=== PATIENT | male | born 1950 | race Caucasian/White ===

== ENCOUNTER 2017-08-07 20:30 | Inpatient (IN) | payer MEDICARE, OTHER ==
[~2017-08-07] VITALS: Ht 177.8 cm; Wt 155.1 kg
[2017-08-07 20:30] VITALS: BP 119/70
[2017-08-07] MEDS ORDERED: NIAC500T PO (22:51)
[2017-08-07] MEDS ORDERED: SELE325S2 TP (22:51)
[2017-08-07] MEDS ORDERED: MAGN400T3 PO (22:51)
[2017-08-07] MEDS ORDERED: TAMS0.4C2 PO (22:51)
[2017-08-07] MEDS ORDERED: ACET325T9 PO (22:51)
[2017-08-07] MEDS ORDERED: NYST1POW PO (22:51)
[2017-08-07] MEDS ORDERED: MAG355OR11 PO (22:51)
[2017-08-07] MEDS ORDERED: POTA20TA82 PO (22:51)
[2017-08-07] MEDS ORDERED: MIRT7.5T8 PO (22:51)
[2017-08-07] MEDS ORDERED: DOCU-109 PO (22:51)
[2017-08-07] MEDS ORDERED: ASCO500T3 PO (22:51)
[2017-08-07] MEDS ORDERED: BUPR100T8 PO (22:51)
[2017-08-07] MEDS ORDERED: OLAN2.5T11 PO (22:51)
[2017-08-07] MEDS ORDERED: INDA2.5T PO (22:51)
[2017-08-07] MEDS ORDERED: MAGN2400 PO (22:51)
[2017-08-07] MEDS ORDERED: FLUV50TA2 PO (22:51)
[2017-08-07] MEDS ORDERED: TRAZ100T12 PO (22:51)
[2017-08-07] MEDS ORDERED: NYST15OI TP (22:51)
[2017-08-07] MEDS ORDERED: FERR325T3 PO (22:51)
[2017-08-07] MEDS ORDERED: DIVA500T9 PO (22:51)
[2017-08-07] MEDS ORDERED: BUSP5TAB PO (22:51)
[2017-08-07] MEDS ORDERED: CYAN10005 PO (22:51)
[2017-08-07] MEDS ORDERED: BISA-42 PO (22:51)
[2017-08-07] MEDS ORDERED: RISP2TAB3 PO (22:51)
[2017-08-07 22:54] VITALS: BP 131/71
[2017-08-07] MEDS ORDERED: ACETAMINOPHEN 325 MG TABLET. PO PRN (23:00)
[2017-08-07] MEDS: DIVALPROEX DELAYED RELEASE 500 MG TABLET.DR. PO SCH ×2 (23:00→23:50)
[2017-08-07] MEDS ORDERED: MAGNESIUM HYDROXIDE 2,400 MG/30 ML ORAL.SUSP. PO PRN (23:00)
[2017-08-07] MEDS ORDERED: ALOE VERA TP SCH (23:00)
[2017-08-07] MEDS ORDERED: SELENIUM SULFIDE TP SCH (23:00)
[2017-08-07] MEDS ORDERED: MAG HYDROX/ALUMINUM HYD/SIMETH 30 ML ORAL.SUSP PO PRN (23:00)
[2017-08-07] MEDS ORDERED: traZODone 100 MG TABLET. PO PRN (23:00)
[2017-08-07] MEDS ORDERED: BISACODYL 5 MG TABLET.DR. PO PRN (23:00)
[2017-08-07] MEDS ORDERED: NYSTATIN 100,000 UNIT/GM TOPICAL CREAM 15GM TUBE. TP PRN (23:00)
[2017-08-07] MEDS ORDERED: OLANZapine 2.5 MG TABLET PO PRN (23:00)
[2017-08-07] MEDS: MAGNESIUM OXIDE 400 MG TABLET PO SCH (23:50)
[2017-08-07] MEDS: risperiDONE 1 MG TABLET. PO SCH (23:50)
[2017-08-07] MEDS: busPIRone 5 MG TABLET. PO SCH (23:50)
[2017-08-07] MEDS: POTASSIUM CL 20MEQ-0.45% NACL 1,000 ML IV SCH (23:50)
[2017-08-07] MEDS: NIACIN ER 500 MG TABLET.ER PO SCH (23:50)
[2017-08-07] MEDS: MIRTAZAPINE 7.5 MG TABLET. PO SCH (23:50)
[2017-08-08] VITALS (7 sets, daily range): BP systolic 111–157; BP diastolic 61–80
[2017-08-08] MEDS: methylPREDNISolone SOD SUCC PF 40 MG/ML VIAL. IV SCH ×4 (00:10→21:47)
--- NOTE | 2017-08-08 00:55 | HP ---
ADMIT DATE: 08/07/2017 CHIEF COMPLAINT: Shortness of breath. HISTORY OF PRESENT ILLNESS: The patient is a 66-year-old morbidly obese gentleman with multiple psychiatric issues as well as COPD and CHF who presented from his custodial to the Emergency Room at [facility] with difficulty breathing. He apparently was found to be pulse ox at 82% on room air, which improved with 5 liters by nasal cannula. In the ER, he initially appeared confused and EMS had found him in a puddle of foul-smelling urine. EMS was told by custodial staff that last time patient's oxygen saturation was checked last week when it was normal. In the Emergency Room, he was evaluated, was shown to have significant oxygen needs with elevated CO2. He was therefore transferred to [facility] for pulmonary evaluation and potential BiPAP. PAST MEDICAL HISTORY: COPD, hypertension, hyperlipidemia, dysphasia, generalized weakness, obstructive sleep apnea, chronic pain, mental retardation, schizophrenia, seizure disorder, anxiety/bipolar disorder and schizo-affective disorder. SOCIAL HISTORY: [facility]. No toxic habits. He is a nonsmoker. ALLERGIES: SULFA, DIAZEPAM AND FLUOXETINE. MEDICATIONS: MAR reconciled with home medications. REVIEW OF SYSTEMS: Positive as per HPI. Denies any fevers or chills. He feels fine, is very thirsty requesting food and drink. Denies any other symptoms in rest of organ system review. PHYSICAL EXAMINATION: VITAL SIGNS: Show a blood pressure of 131/71, heart rate of 95, respiratory rate at 22 and temperature 99.1. GENERAL: This is a massively obese 66-year-old gentleman, awake, alert, in no acute distress. HEENT: Shows no scleral icterus. Oral mucosa is moist. NECK: Short and thick. LUNGS: Fairly clear with distant breath sounds. HEART: Regular rate and rhythm. No murmur appreciated. ABDOMEN: Massively obese. Positive bowel sounds. EXTREMITIES: Show no edema. SKIN: Warm, soft and dry without any rash. LABORATORIES: CBC at [facility] with an undocumented WBC, hemoglobin 10.5 and platelets of 224. Chemistries with BUN and creatinine of 19 and 0.8. Electrolytes with potassium of 3.4, otherwise benign. LFTs normal. Albumin at 3.0. UA with 20-40 wbc's and few bacteria. ABGs with pH of 7.50, pCO2 of 56, pO2 of 54 and FiO2 of 38%. Lactic acid at 1.6. Troponin 0.196. RADIOGRAPHIC FINDINGS: A portable chest x-ray with possible cephalization, poor technique with rotation. CT of the head shows no acute intracranial CT abnormality, ventriculomegaly. ASSESSMENT AND PLAN: The patient is a 66-year-old morbidly-obese gentleman with history of chronic obstructive pulmonary disease and obstructive sleep apnea who presents with some altered mental status and possible urinary tract infection. Suspect this is chronic obstructive pulmonary disease exacerbation as he is quite hypercarbic. He has been admitted. Repeat arterial blood gases here revealed worsening pCO2. We will start BiPAP at this time for his hypercapnia and hypoxia. He is actually clinically fairly asymptomatic. Question of urinary tract infection is raised as well. I suspect that this actually may not be the case given his body habitus. Nevertheless, we will obtain urine culture. He has received ceftriaxone in the Emergency Room already. We will continue for now empirically, switch when a specific culture and sensitivity is available. For his significant psych and mental issues, we will continue all his home medications for the time being. This may be somewhat complicated given the need for BiPAP at this time. We will reevaluate his respiratory status in the morning. He does have elevated troponins, which I suspect are secondary to his respiratory distress rather than primary. We will rule out acute coronary syndrome. Obtain echo in the morning and obtain cardiac consult. NORTH GARCIA MD DR: UR/nts JOB#: [id number] / [id number] NATHAN Wills MD MTDD
[2017-08-08 04:30] LABS: BASO % 0 % (0-3); EOS % 0 % (0-3); HEMATOCRIT 31.5 % (39.0-53.0); HEMOGLOBIN 10.1 g/dL (13.0-17.5); LYMPH # 0.7 x10^3/uL (1.0-4.8); LYMPH % 9 % (24-48); MEAN CORPUSCULAR HEMOGLOBIN 27 pg (25-35); MEAN CORPUSCULAR HGB CONC 32 g/dL (31-37); MEAN CORPUSCULAR VOLUME 82 fL (79-100); MONO % 1 % (0-9); NEUT % 89 % (31-73); PLATELET COUNT 221 x10^3/uL (140-400); RED BLOOD COUNT 3.83 x10^6/uL (4.30-5.70); RED CELL DISTRIBUTION WIDTH 16.7 % (11.5-14.5); WHITE BLOOD COUNT 7.6 x10^3/uL (4.0-11.0)
[2017-08-08 04:52] LABS: ALBUMIN 2.6 g/dL (3.4-5.0); ALBUMIN/GLOBULIN RATIO 0.6 (1.0-1.7); CALCIUM 9.5 mg/dL (8.5-10.1); CREATININE 0.7 mg/dL (0.7-1.3); GFR 113.5; POTASSIUM 3.3 mmol/L (3.5-5.1); TOTAL BILIRUBIN 0.3 mg/dL (0.2-1.0); TOTAL PROTEIN 7.3 g/dL (6.4-8.2)
[2017-08-08 07:06] LABS: ANISOCYTOSIS SLIGHT; PLT ESTIMATE ADEQUATE (ADEQUATE); POLYCHROMASIA SLIGHT
[2017-08-08] MEDS: POTASSIUM CL 20MEQ-0.45% NACL 1,000 ML IV SCH ×2 (08:46→21:41)
[2017-08-08] MEDS: DIVALPROEX DELAYED RELEASE 500 MG TABLET.DR. PO SCH ×3 (09:00→21:39)
[2017-08-08] MEDS: busPIRone 5 MG TABLET. PO SCH ×4 (09:00→21:40)
[2017-08-08] MEDS: buPROPion SR 100 MG TABLET.SA. PO SCH (12:15)
[2017-08-08] MEDS: risperiDONE 1 MG TABLET. PO SCH ×2 (12:15→21:52)
[2017-08-08] MEDS: TAMSULOSIN 0.4 MG CAP.ER.24H. PO SCH (12:15)
[2017-08-08] MEDS: ASCORBIC ACID 500 MG TABLET PO SCH (12:17)
[2017-08-08] MEDS: POTASSIUM CHLORIDE 20 MEQ TABLET.ER. PO SCH (12:17)
[2017-08-08] MEDS: CYANOCOBALAMIN (VITAMIN B-12) 1,000 MCG TABLET. PO SCH (12:18)
[2017-08-08] MEDS: FERROUS SULFATE 325 MG TABLET. PO SCH (12:18)
[2017-08-08] MEDS: DOCUSATE SODIUM 100 MG CAPSULE. PO SCH ×2 (12:18→21:40)
[2017-08-08] MEDS: MAGNESIUM OXIDE 400 MG TABLET PO SCH ×3 (12:23→21:39)
[2017-08-08] MEDS: NYSTATIN TOPICAL POWDER 15GM BOTTLE. TP SCH ×2 (12:29→21:40)
--- NOTE | 2017-08-08 12:37 | PDOC2 ---
CONNOR COTTO FIREWOOD CUTTER 08/08/17 1237: CARDIAC CONSULT DATE OF CONSULT Date of Consult DATE: 08/08/17 TIME: 12:27 REASON FOR CONSULT Reason for Consult: SOB, hx of CHF REFERRING PHYSICIAN Referring Physician: Berta SOURCE Source: Chart review, Patient HISTORY OF PRESENT ILLNESS HISTORY OF PRESENT ILLNESS This is a 66 yo male admitted for complains of SOA. Initially he was at [place] and transferred here for further workup. He is a poor historian and could not tell me significant details of his medical hx and his symptoms. He told me that he is still a little SOA but able to tolerate removing his bipap and eating lunch right now and requesting diet soda. He has significant psychiatric issue and reside primarily at the [facility] home. He is notable for COPD , CHF, and was having difficulty breathing at the [facility] home and was noted at 82% RA initially at [facility]. He was noted to be confused but at this time his baseline is not determined. Denies any chest pain currently and no symptoms of palpitations. Per chart review there was no noted symptoms of palpitations. He appears to have significant limitation to his mobility possibly WC bound. Reviewing his past chart, no indications of VTE, falls, injury and no CAD as well as no ischemic workup. PAST MEDICAL HISTORY Cardiovascular: CHF, HTN, Other (chronic lymphedema) Pulmonary: Other (SARITHA with CPAP) CENTRAL NERVOUS SYSTEM: Other (intellectual disability) GI: Constipation Psych: Bipolar, Depression (major) Musculoskeletal: Osteoarthritis, Other (Vit D deficiency) Renal/: Other (hypnatremia) FAMILY HISTORY Family History noncontributory to CV SOCIAL HISTORY Smoke: No ALCOHOL: none Drugs: None Lives: [facility] CURRENT MEDICATIONS CURRENT MEDICATIONS Current Medications Medications (Trade) Dose Ordered Sig/Corrie Route PRN Reason Start Time Stop Time Status Last Admin Dose Admin Potassium Chloride/Sodium Chloride 1,000 ml @ 100 mls/hr Q10H IV 08/07/17 23:00 08/08/17 08:46 Ascorbic Acid (Vitamin C) 500 mg DAILY PO 08/08/17 09:00 08/08/17 12:17 Bupropion HCl (Wellbutrin Sr) 300 mg DAILY PO 08/08/17 09:00 08/08/17 12:15 Buspirone HCl (Buspar) 5 mg QID PO 08/07/17 23:00 08/08/17 12:15 Cyanocobalamin (Vitamin B-12) 1,000 mcg DAILY PO 08/08/17 09:00 08/08/17 12:18 Divalproex Sodium (Depakote) 500 mg BID PO 08/07/17 23:00 08/07/17 23:00 Docusate Sodium (Colace) 100 mg BID PO 08/08/17 09:00 08/08/17 12:18 Magnesium Oxide (Magnesium Oxide) 400 mg TID PO 08/07/17 23:00 08/08/17 12:23 Mirtazapine (Remeron) 7.5 mg HS PO 08/07/17 23:00 08/07/17 23:50 Niacin (Slo-Niacin) 500 mg HS PO 08/07/17 23:00 08/07/17 23:50 Tamsulosin HCl (Flomax) 0.4 mg DAILY PO 08/08/17 09:00 08/08/17 12:15 Ferrous Sulfate (Feosol) 325 mg DAILY PO 08/08/17 09:00 08/08/17 12:18 Fluvoxamine Maleate (Luvox) 75 mg QHS PO 08/07/17 23:00 08/07/17 23:49 Potassium Chloride (Klor-Con) 40 meq DAILY PO 08/08/17 09:00 08/08/17 12:17 Risperidone (RisperDAL) 2 mg BID PO 08/07/17 23:00 08/08/17 12:15 Methylprednisolone Sodium Succinate (SOLU-Medrol 40MG VIAL) 40 mg Q8HRS IV 08/08/17 00:00 08/08/17 05:19 ALLERGIES ALLERGIES: Coded Allergies: Sulfa (Sulfonamide Antibiotics) (Verified Allergy, Intermediate, 08/07/17) ROS Review of System limited. poor historian, see HPI PHYSICAL EXAM General: Alert, Cooperative, No acute distress HEENT: Atraumatic, Mucous membr. moist/pink Lungs: Other (basilar crackles) Heart: Regular rate (SR), Normal S1, Normal S2, Other (distant heart sounds) Abdomen: Soft, Other (obesity) Extremities: No cyanosis, Other (1+ bilateral LE pitting edema) Skin: No breakdown, Other (facial seborrhea) Neuro: Normal speech, Sensation intact Psych/Mental Status: Mental status NL, Mood NL MUSCULOSKELETAL: Osteoarthritic changes both hands VITALS VITALS Vital Signs Date Time Temp Pulse Resp B/P (MAP) Pulse Ox O2 Delivery O2 Flow Rate FiO2 08/08/17 10:55 98.2 75 20 124/65 (84) 93 BiPAP/CPAP 98.2 08/08/17 08:00 5.0 LABS Lab: Laboratory Tests Test 08/07/17 23:25 08/08/17 04:20 Troponin I Quantitative 0.141 ng/mL (0.000-0.055) 0.104 ng/mL (0.000-0.055) White Blood Count 7.6 x10^3/uL (4.0-11.0) Red Blood Count 3.83 x10^6/uL (4.30-5.70) Hemoglobin 10.1 g/dL (13.0-17.5) Hematocrit 31.5 % (39.0-53.0) Mean Corpuscular Volume 82 fL (79-100) Mean Corpuscular Hemoglobin 27 pg (25-35) Mean Corpuscular Hemoglobin Concent 32 g/dL (31-37) Red Cell Distribution Width 16.7 % (11.5-14.5) Platelet Count 221 x10^3/uL (140-400) Neutrophils (%) (Auto) 89 % (31-73) Lymphocytes (%) (Auto) 9 % (24-48) Monocytes (%) (Auto) 1 % (0-9) Eosinophils (%) (Auto) 0 % (0-3) Basophils (%) (Auto) 0 % (0-3) Neutrophils # (Auto) 6.8 x10^3uL (1.8-7.7) Lymphocytes # (Auto) 0.7 x10^3/uL (1.0-4.8) Monocytes # (Auto) 0.1 x10^3/uL (0.0-1.1) Eosinophils # (Auto) 0.0 x10^3/uL (0.0-0.7) Basophils # (Auto) 0.0 x10^3/uL (0.0-0.2) Segmented Neutrophils % 89 % (35-66) Band Neutrophils % 2 % (0-9) Lymphocytes % 7 % (24-48) Monocytes % 2 % (0-10) Platelet Estimate Adequate (ADEQUATE) Polychromasia Slight Anisocytosis Slight Sodium Level 134 mmol/L (136-145) Potassium Level 3.3 mmol/L (3.5-5.1) Chloride Level 92 mmol/L (98-107) Carbon Dioxide Level 41 mmol/L (21-32) Anion Gap 1 (6-14) Blood Urea Nitrogen 22 mg/dL (8-26) Creatinine 0.7 mg/dL (0.7-1.3) Estimated GFR (Cockcroft-Gault) 113.5 BUN/Creatinine Ratio 31 (6-20) Glucose Level 229 mg/dL (70-99) Hemoglobin A1c 6.1 % (4.8-5.6) Calcium Level 9.5 mg/dL (8.5-10.1) Total Bilirubin 0.3 mg/dL (0.2-1.0) Aspartate Amino Transf (AST/SGOT) 20 U/L (15-37) Alanine Aminotransferase (ALT/SGPT) 17 U/L (16-63) Alkaline Phosphatase 46 U/L (46-116) Total Protein 7.3 g/dL (6.4-8.2) Albumin 2.6 g/dL (3.4-5.0) Albumin/Globulin Ratio 0.6 (1.0-1.7) Triglycerides Level 47 mg/dL (0-150) Cholesterol Level 154 mg/dL (0-200) LDL Cholesterol, Calculated 94 mg/dL (0-100) VLDL Cholesterol, Calculated 9 mg/dL (0-40) Non-HDL Cholesterol Calculated 103 mg/dL (0-129) HDL Cholesterol 51 mg/dL (40-60) Cholesterol/HDL Ratio 3.0 Thyroid Stimulating Hormone (TSH) 0.500 uIU/mL (0.358-3.74) ASSESSMENT/PLAN ASSESSMENT/PLAN 1. Acute respiratory failure with underlying COPD/SARITHA: improved with bipap. PE could not be completely ruled out. 2. Elevated troponin: peaked at 0.196, Possibly type 2-demand mediated. EKG SR notable for RBBB/LAFB no acute changes by comparison. No CP. 3. Hyperglycemia: A1C 6.1, metabolic syndrome with antipsychotic meds. 4. Significant psych issues: bipolar/major depression 5. Morbid obesity/deconditioning: likely WC bound 6. Chronic diastolic CHF 7. HLP: controlled Recommendations 1. Will need to discussed with DPOA if there is one regarding treatments and goals of care 2. TTE today and will note any changes and will consider and type of ischemic workup pending result. 3. Mg, PCXR, EKG, DDIMER, pro NT BNP 4. ASA. Replace K 5. Consult pulmonary Problems: EVE URRUTIA MD 08/08/17 1657: CARDIAC CONSULT ALLERGIES ALLERGIES: Coded Allergies: Sulfa (Sulfonamide Antibiotics) (Verified Allergy, Intermediate, 08/07/17) ASSESSMENT/PLAN ASSESSMENT/PLAN Patient seen and examined. Agree with CHILD WELFARE MANAGER's assessment and plan. Acute respiratory failure most probably acute COPD exacerbation. Pulmonary team consultation Slight troponin elevation probably secondary to demand ischemia from hypoxia 2-D echo showed normal LV function without any regional wall motion abnormalities. Doubt ACS. Thank you for your consultation. Problems: CONNOR COTTO APRN Aug 08, 2017 12:37 EVE URRUTIA MD Aug 08, 2017 16:57
--- NOTE | 2017-08-08 13:10 | EKG ---
[facility] [address] [place] [address] Test Date: 2017-08-08 Test Time: 13:04:15 Pat Name: GURPREET BRASHER Department: Room: [facility] Gender: M Slots Manager: AT : 1950 Requested By: CONNOR COTTO Order Number: [id number] Reading MD: Clark Ruff Measurements Intervals [place] Rate: 72 P: 0 [place]: 174 QRS: -50 QRSD: 126 T: 15 QT: 456 QTc: 501 Interpretive Statements SINUS RHYTHM ABNORMAL LEFT AXIS DEVIATION LEFT ANTERIOR FASCICULAR BLOCK NON SPECIFIC INTRAVENTRICULAR BLOCK ABNORMAL ECG RI6.01 No previous ECG available for comparison Electronically Signed On 08-22-2017 13:43:43 TRACK SUBWAY REPAIR SUPERVISOR by Clark Ruff
--- NOTE | 2017-08-08 13:36 | RAD ---
Indication: No history. Time of exam 1320 hours. The heart is enlarged. Lungs are clear. No effusion or pneumothorax is seen. Impression: Cardiomegaly.
[2017-08-08] MEDS ORDERED: PERFLUTREN PROTEIN-A MICROSPHR 0.22 MG/ML 3 ML VIAL. IV ONE ×2 (14:00→14:03)
[2017-08-08] MEDS ORDERED: IOHEXOL 300 MG/ML 100ML VIAL. IV ONE (15:15)
[2017-08-08] MEDS ORDERED: CONTRAST GIVEN MC PRN (15:15)
--- NOTE | 2017-08-08 16:03 | CARD ---
APPROVED REPORT EXAM: Two-dimensional and M-mode echocardiogram with Doppler, color Doppler with contrast. Other Information Quality : Technically Limited Rhythm : NSRTechnically limited study due to body habitus and positioning. INDICATION Dyspnea Echo Enhancing Agent Indication: Endocardial border delineation Agent/Amount Used: Optison 2mL 2D DIMENSIONS IVSd1.3 (0.7-1.1cm)Aortic Root(2D)3.7 (2.0-3.7cm) LVDd4.6 (3.9-5.9cm)LVOT Diameter2.5 (1.8-2.4cm) PWd1.3 (0.7-1.1cm)LVDs3.2 (2.5-4.0cm) FS (%) 31.5 %SV58.1 ml LVEF(%)59.5 (>50%) Aortic Valve AoV Peak Chong.144.0cm/sAoV VTI28.3cm AO Peak GR.8.3mmHgLVOT VTI 23.42cm AO Mean GR.5mmHg Mitral Valve MV E Hzzkxmfu68.2cm/sMV E Peak Gr.1mmHg MV DECEL [id number] A Ijmflpyi17.3cm/s MV FBM95omB/A Ratio0.7 MV A Fnlhdtyf218gnUNA (PHT)3.67cm2 TDI Lateral E' P. V11.35cm/sMedial E' P. V6.91cm/s E/Lateral E'4.9E/Medial E'8.0 Tricuspid Valve TR P. Fdxaawuc113bx/sRAP [id number] TR Peak Gr.98bbIeFITL24msFw LEFT VENTRICLE Technically difficult study. The left ventricle is normal size. There is borderline to mild concentri c left ventricular hypertrophy. Left ventricle systolic function is normal. The Ejection Fraction is 50-55%. There is normal LV segmental wall motion. Tissue Doppler imaging reveals mild left ventricula r diastolic dysfunction. Transmitral Doppler flow pattern is Grade I-abnormal relaxation pattern. RIGHT VENTRICLE The right ventricle is mildly dilated. RV systolic function is mildly reduced. ATRIA The left atrium size is normal. The right atrium size is normal. The interatrial septum is intact wit h no evidence for an atrial septal defect or patent foramen ovale as noted on 2-D or Doppler imaging. AORTIC VALVE The aortic valve is mildly calcified. The aortic valve is trileaflet. Doppler and Color Flow revealed no significant aortic regurgitation. There is no significant aortic valvular stenosis. MITRAL VALVE The mitral valve leaflets are calcified. There is no mitral valve stenosis. Doppler and Color Flow re vealed mild to moderate mitral regurgitation. TRICUSPID VALVE The tricuspid valve is not well visualized. Doppler and Color Flow revealed mild tricuspid regurgitat ion. The PA pressure was estimated at 32 mmHg. There is no tricuspid valve stenosis. PULMONIC VALVE The pulmonic valve is not well visualized. Doppler and Color Flow revealed no pulmonic valvular regur gitation. There is no pulmonic valvular stenosis. GREAT VESSELS The aortic root is mildily enlarged. The ascending aorta is dilated measuring 4.1 cm. Pulmonary veins not recorded. Due to poor image quality, the IVC could not be assessed. PERICARDIAL EFFUSION There is no evidence of significant pericardial effusion. Critical Notification Critical Value: No <Conclusion> Technically difficult study. The left ventricle is normal size. Left ventricle systolic function is normal. The Ejection Fraction is 50-55%. There is borderline to mild concentric left ventricular hypertrophy. RV systolic function is mildly reduced. There is no significant aortic valvular stenosis. Doppler and Color Flow revealed no significant aortic regurgitation. Doppler and Color Flow revealed mild to moderate mitral regurgitation. Doppler and Color Flow revealed mild tricuspid regurgitation. The PA pressure was estimated at 32 mmHg. The aortic root is mildily enlarged. The ascending aorta is dilated measuring 4.1 cm. There is no evidence of significant pericardial effusion.
--- NOTE | 2017-08-08 16:20 | RAD ---
EXAM: CT ANGIOGRAPHY OF THE CHEST WITH AND WITHOUT INTRAVENOUS CONTRAST. HISTORY: Respiratory distress. TECHNIQUE: Computed tomographic angiography of the chest was performed before and after the intravenous administration of 75 mL Omnipaque 300. 3-D maximum intensity projections were also performed. COMPARISON: None. FINDINGS: Images of the upper abdomen reveal extensive nodularity with thin and the omentum and peritoneal fat adjacent to the stomach. A hypoattenuating lesion in the left hepatic lobe measures 15 mm and is indeterminate. A moderate hiatal hernia contains mostly fat. Bone windows reveal there is an expansile lesion within the left anterior 8th rib concerning for metastasis. Extensive respiratory motion artifact limits sensitivity for small pulmonary emboli in the lung bases. None are seen. There is no aortic dissection or aneurysm. There are no pathologically enlarged mediastinal or axillary lymph nodes. There is no pleural or pericardial effusion. The heart is not enlarged. There are atherosclerotic calcifications of the coronary arteries. There is mild dependent atelectasis. IMPRESSION: 1. Peritoneal and omental metastatic disease, partially visualized. Correlate for known diagnosis. CT of the abdomen/pelvis could further evaluate if unclear. 2. Respiratory motion artifact limits sensitivity for small pulmonary emboli. Note is seen. *One or more of the following individualized dose reduction techniques were utilized for this examination: 1. Automated exposure control. 2. Adjustment of the mA and/or kV according to patient size. 3. Use of iterative reconstruction technique.
[2017-08-08 17:00] LABS: HCO3 ABG 36 mmol/L (21-28); PCO2 ABG 50 mmHg (35-46); SAT O2 ABG 85 % (92-99)
[2017-08-08 17:02] LABS: PO2 ABG 49 mmHg (65-108)
[2017-08-08 17:05] LABS: PH ABG 7.47 (7.35-7.45)
--- NOTE | 2017-08-08 17:21 | PDOC ---
PROGRESS NOTES Chief Complaint Chief Complaint [error] Labs LABS Laboratory Tests Test 08/07/17 23:25 08/07/17 23:35 08/08/17 04:20 08/08/17 13:25 Troponin I Quantitative 0.141 ng/mL (0.000-0.055) 0.104 ng/mL (0.000-0.055) Nasal Screen MRSA (PCR) Negative (Negative) White Blood Count 7.6 x10^3/uL (4.0-11.0) Red Blood Count 3.83 x10^6/uL (4.30-5.70) Hemoglobin 10.1 g/dL (13.0-17.5) Hematocrit 31.5 % (39.0-53.0) Mean Corpuscular Volume 82 fL (79-100) Mean Corpuscular Hemoglobin 27 pg (25-35) Mean Corpuscular Hemoglobin Concent 32 g/dL (31-37) Red Cell Distribution Width 16.7 % (11.5-14.5) Platelet Count 221 x10^3/uL (140-400) Neutrophils (%) (Auto) 89 % (31-73) Lymphocytes (%) (Auto) 9 % (24-48) Monocytes (%) (Auto) 1 % (0-9) Eosinophils (%) (Auto) 0 % (0-3) Basophils (%) (Auto) 0 % (0-3) Neutrophils # (Auto) 6.8 x10^3uL (1.8-7.7) Lymphocytes # (Auto) 0.7 x10^3/uL (1.0-4.8) Monocytes # (Auto) 0.1 x10^3/uL (0.0-1.1) Eosinophils # (Auto) 0.0 x10^3/uL (0.0-0.7) Basophils # (Auto) 0.0 x10^3/uL (0.0-0.2) Segmented Neutrophils % 89 % (35-66) Band Neutrophils % 2 % (0-9) Lymphocytes % 7 % (24-48) Monocytes % 2 % (0-10) Platelet Estimate Adequate (ADEQUATE) Polychromasia Slight Anisocytosis Slight Sodium Level 134 mmol/L (136-145) Potassium Level 3.3 mmol/L (3.5-5.1) Chloride Level 92 mmol/L (98-107) Carbon Dioxide Level 41 mmol/L (21-32) Anion Gap 1 (6-14) Blood Urea Nitrogen 22 mg/dL (8-26) Creatinine 0.7 mg/dL (0.7-1.3) Estimated GFR (Cockcroft-Gault) 113.5 BUN/Creatinine Ratio 31 (6-20) Glucose Level 229 mg/dL (70-99) Hemoglobin A1c 6.1 % (4.8-5.6) Calcium Level 9.5 mg/dL (8.5-10.1) Magnesium Level 2.1 mg/dL (1.8-2.4) Total Bilirubin 0.3 mg/dL (0.2-1.0) Aspartate Amino Transf (AST/SGOT) 20 U/L (15-37) Alanine Aminotransferase (ALT/SGPT) 17 U/L (16-63) Alkaline Phosphatase 46 U/L (46-116) Total Protein 7.3 g/dL (6.4-8.2) Albumin 2.6 g/dL (3.4-5.0) Albumin/Globulin Ratio 0.6 (1.0-1.7) Triglycerides Level 47 mg/dL (0-150) Cholesterol Level 154 mg/dL (0-200) LDL Cholesterol, Calculated 94 mg/dL (0-100) VLDL Cholesterol, Calculated 9 mg/dL (0-40) Non-HDL Cholesterol Calculated 103 mg/dL (0-129) HDL Cholesterol 51 mg/dL (40-60) Cholesterol/HDL Ratio 3.0 Thyroid Stimulating Hormone (TSH) 0.500 uIU/mL (0.358-3.74) D-Dimer (Patricia) 5.86 ug/mlFEU (0.00-0.50) RR-Taq-X-Type Natriuretic Peptide 197 pg/mL (0-124) Test 08/08/17 15:35 O2 Saturation 85 % (92-99) Arterial Blood pH 7.47 (7.35-7.45) Arterial Blood pCO2 at Patient Temp 50 mmHg (35-46) Arterial Blood pO2 at Patient Temp 49 mmHg (65-108) Arterial Blood HCO3 36 mmol/L (21-28) Arterial Blood Base Excess 11 mmol/L (-3-3) FiO2 36.0 NORTH GARCIA MD Aug 08, 2017 17:21
--- NOTE | 2017-08-08 18:13 | PDOC ---
PROGRESS NOTES Chief Complaint Chief Complaint AMS ASSESSMENT AND PLAN: 1. encephalopathy: metabolic, poss due to hypercapnia vs poss UTI (UA/culture gamez at [facility] on 08/07, results pending). appear resolved. 2. Hypercapnic respir failure: was on BiPAP last night, pH, pCO2 sl improved today, but significantly hypoxic. suspect he may be at his baseline currently. await pulm input. 3. SARITHA, Hypoventilation syndrome in obesity: on CPAP at home, [facility]. CTA neg for PE 4. UTI: cult results pending. on empiric ceftriax 5. Troponin elevation: suspect demand mediated. echo results noted (chronic mild DD). appreciate cardiology input 6. Abn CT findings: on CTA today, had peritoneal and omental mets. obtain CT abd/pelvis; unk primary. H/O consult History of Present Illness History of Present Illness feels fine. wants his Diet Coke Vitals Vitals Vital Signs Date Time Temp Pulse Resp B/P (MAP) Pulse Ox O2 Delivery O2 Flow Rate FiO2 08/08/17 15:08 97.8 76 20 126/72 (90) 90 Nasal Cannula 5.0 97.8 Physical Exam General: Alert, Cooperative, No acute distress Heart: Regular rate (SR), Other (distant heart sounds) Lungs: Clear (decreased breath sounds) Abdomen: Soft, Other (obesity) Extremities: No cyanosis, Other (1+ bilateral LE pitting edema) Skin: No breakdown, Other (facial seborrhea) Labs LABS Laboratory Tests Test 08/07/17 23:25 08/07/17 23:35 08/08/17 04:20 08/08/17 13:25 Troponin I Quantitative 0.141 ng/mL (0.000-0.055) 0.104 ng/mL (0.000-0.055) Nasal Screen MRSA (PCR) Negative (Negative) White Blood Count 7.6 x10^3/uL (4.0-11.0) Red Blood Count 3.83 x10^6/uL (4.30-5.70) Hemoglobin 10.1 g/dL (13.0-17.5) Hematocrit 31.5 % (39.0-53.0) Mean Corpuscular Volume 82 fL (79-100) Mean Corpuscular Hemoglobin 27 pg (25-35) Mean Corpuscular Hemoglobin Concent 32 g/dL (31-37) Red Cell Distribution Width 16.7 % (11.5-14.5) Platelet Count 221 x10^3/uL (140-400) Neutrophils (%) (Auto) 89 % (31-73) Lymphocytes (%) (Auto) 9 % (24-48) Monocytes (%) (Auto) 1 % (0-9) Eosinophils (%) (Auto) 0 % (0-3) Basophils (%) (Auto) 0 % (0-3) Neutrophils # (Auto) 6.8 x10^3uL (1.8-7.7) Lymphocytes # (Auto) 0.7 x10^3/uL (1.0-4.8) Monocytes # (Auto) 0.1 x10^3/uL (0.0-1.1) Eosinophils # (Auto) 0.0 x10^3/uL (0.0-0.7) Basophils # (Auto) 0.0 x10^3/uL (0.0-0.2) Segmented Neutrophils % 89 % (35-66) Band Neutrophils % 2 % (0-9) Lymphocytes % 7 % (24-48) Monocytes % 2 % (0-10) Platelet Estimate Adequate (ADEQUATE) Polychromasia Slight Anisocytosis Slight Sodium Level 134 mmol/L (136-145) Potassium Level 3.3 mmol/L (3.5-5.1) Chloride Level 92 mmol/L (98-107) Carbon Dioxide Level 41 mmol/L (21-32) Anion Gap 1 (6-14) Blood Urea Nitrogen 22 mg/dL (8-26) Creatinine 0.7 mg/dL (0.7-1.3) Estimated GFR (Cockcroft-Gault) 113.5 BUN/Creatinine Ratio 31 (6-20) Glucose Level 229 mg/dL (70-99) Hemoglobin A1c 6.1 % (4.8-5.6) Calcium Level 9.5 mg/dL (8.5-10.1) Magnesium Level 2.1 mg/dL (1.8-2.4) Total Bilirubin 0.3 mg/dL (0.2-1.0) Aspartate Amino Transf (AST/SGOT) 20 U/L (15-37) Alanine Aminotransferase (ALT/SGPT) 17 U/L (16-63) Alkaline Phosphatase 46 U/L (46-116) Total Protein 7.3 g/dL (6.4-8.2) Albumin 2.6 g/dL (3.4-5.0) Albumin/Globulin Ratio 0.6 (1.0-1.7) Triglycerides Level 47 mg/dL (0-150) Cholesterol Level 154 mg/dL (0-200) LDL Cholesterol, Calculated 94 mg/dL (0-100) VLDL Cholesterol, Calculated 9 mg/dL (0-40) Non-HDL Cholesterol Calculated 103 mg/dL (0-129) HDL Cholesterol 51 mg/dL (40-60) Cholesterol/HDL Ratio 3.0 Thyroid Stimulating Hormone (TSH) 0.500 uIU/mL (0.358-3.74) D-Dimer (Patricia) 5.86 ug/mlFEU (0.00-0.50) YD-Awv-I-Type Natriuretic Peptide 197 pg/mL (0-124) Test 08/08/17 15:35 O2 Saturation 85 % (92-99) Arterial Blood pH 7.47 (7.35-7.45) Arterial Blood pCO2 at Patient Temp 50 mmHg (35-46) Arterial Blood pO2 at Patient Temp 49 mmHg (65-108) Arterial Blood HCO3 36 mmol/L (21-28) Arterial Blood Base Excess 11 mmol/L (-3-3) FiO2 36.0 Comment Review of Relevant I have reviewed the following items donny (where applicable) has been applied. Labs Laboratory Tests Test 08/07/17 23:25 08/07/17 23:35 08/08/17 04:20 08/08/17 13:25 Troponin I Quantitative 0.141 ng/mL (0.000-0.055) 0.104 ng/mL (0.000-0.055) Nasal Screen MRSA (PCR) Negative (Negative) White Blood Count 7.6 x10^3/uL (4.0-11.0) Red Blood Count 3.83 x10^6/uL (4.30-5.70) Hemoglobin 10.1 g/dL (13.0-17.5) Hematocrit 31.5 % (39.0-53.0) Mean Corpuscular Volume 82 fL (79-100) Mean Corpuscular Hemoglobin 27 pg (25-35) Mean Corpuscular Hemoglobin Concent 32 g/dL (31-37) Red Cell Distribution Width 16.7 % (11.5-14.5) Platelet Count 221 x10^3/uL (140-400) Neutrophils (%) (Auto) 89 % (31-73) Lymphocytes (%) (Auto) 9 % (24-48) Monocytes (%) (Auto) 1 % (0-9) Eosinophils (%) (Auto) 0 % (0-3) Basophils (%) (Auto) 0 % (0-3) Neutrophils # (Auto) 6.8 x10^3uL (1.8-7.7) Lymphocytes # (Auto) 0.7 x10^3/uL (1.0-4.8) Monocytes # (Auto) 0.1 x10^3/uL (0.0-1.1) Eosinophils # (Auto) 0.0 x10^3/uL (0.0-0.7) Basophils # (Auto) 0.0 x10^3/uL (0.0-0.2) Segmented Neutrophils % 89 % (35-66) Band Neutrophils % 2 % (0-9) Lymphocytes % 7 % (24-48) Monocytes % 2 % (0-10) Platelet Estimate Adequate (ADEQUATE) Polychromasia Slight Anisocytosis Slight Sodium Level 134 mmol/L (136-145) Potassium Level 3.3 mmol/L (3.5-5.1) Chloride Level 92 mmol/L (98-107) Carbon Dioxide Level 41 mmol/L (21-32) Anion Gap 1 (6-14) Blood Urea Nitrogen 22 mg/dL (8-26) Creatinine 0.7 mg/dL (0.7-1.3) Estimated GFR (Cockcroft-Gault) 113.5 BUN/Creatinine Ratio 31 (6-20) Glucose Level 229 mg/dL (70-99) Hemoglobin A1c 6.1 % (4.8-5.6) Calcium Level 9.5 mg/dL (8.5-10.1) Magnesium Level 2.1 mg/dL (1.8-2.4) Total Bilirubin 0.3 mg/dL (0.2-1.0) Aspartate Amino Transf (AST/SGOT) 20 U/L (15-37) Alanine Aminotransferase (ALT/SGPT) 17 U/L (16-63) Alkaline Phosphatase 46 U/L (46-116) Total Protein 7.3 g/dL (6.4-8.2) Albumin 2.6 g/dL (3.4-5.0) Albumin/Globulin Ratio 0.6 (1.0-1.7) Triglycerides Level 47 mg/dL (0-150) Cholesterol Level 154 mg/dL (0-200) LDL Cholesterol, Calculated 94 mg/dL (0-100) VLDL Cholesterol, Calculated 9 mg/dL (0-40) Non-HDL Cholesterol Calculated 103 mg/dL (0-129) HDL Cholesterol 51 mg/dL (40-60) Cholesterol/HDL Ratio 3.0 Thyroid Stimulating Hormone (TSH) 0.500 uIU/mL (0.358-3.74) D-Dimer (Patricia) 5.86 ug/mlFEU (0.00-0.50) BL-Btq-L-Type Natriuretic Peptide 197 pg/mL (0-124) Test 08/08/17 15:35 O2 Saturation 85 % (92-99) Arterial Blood pH 7.47 (7.35-7.45) Arterial Blood pCO2 at Patient Temp 50 mmHg (35-46) Arterial Blood pO2 at Patient Temp 49 mmHg (65-108) Arterial Blood HCO3 36 mmol/L (21-28) Arterial Blood Base Excess 11 mmol/L (-3-3) FiO2 36.0 Laboratory Tests Test 08/07/17 23:25 08/07/17 23:35 08/08/17 04:20 08/08/17 13:25 Troponin I Quantitative 0.141 ng/mL (0.000-0.055) 0.104 ng/mL (0.000-0.055) Nasal Screen MRSA (PCR) Negative (Negative) White Blood Count 7.6 x10^3/uL (4.0-11.0) Red Blood Count 3.83 x10^6/uL (4.30-5.70) Hemoglobin 10.1 g/dL (13.0-17.5) Hematocrit 31.5 % (39.0-53.0) Mean Corpuscular Volume 82 fL (79-100) Mean Corpuscular Hemoglobin 27 pg (25-35) Mean Corpuscular Hemoglobin Concent 32 g/dL (31-37) Red Cell Distribution Width 16.7 % (11.5-14.5) Platelet Count 221 x10^3/uL (140-400) Neutrophils (%) (Auto) 89 % (31-73) Lymphocytes (%) (Auto) 9 % (24-48) Monocytes (%) (Auto) 1 % (0-9) Eosinophils (%) (Auto) 0 % (0-3) Basophils (%) (Auto) 0 % (0-3) Neutrophils # (Auto) 6.8 x10^3uL (1.8-7.7) Lymphocytes # (Auto) 0.7 x10^3/uL (1.0-4.8) Monocytes # (Auto) 0.1 x10^3/uL (0.0-1.1) Eosinophils # (Auto) 0.0 x10^3/uL (0.0-0.7) Basophils # (Auto) 0.0 x10^3/uL (0.0-0.2) Segmented Neutrophils % 89 % (35-66) Band Neutrophils % 2 % (0-9) Lymphocytes % 7 % (24-48) Monocytes % 2 % (0-10) Platelet Estimate Adequate (ADEQUATE) Polychromasia Slight Anisocytosis Slight Sodium Level 134 mmol/L (136-145) Potassium Level 3.3 mmol/L (3.5-5.1) Chloride Level 92 mmol/L (98-107) Carbon Dioxide Level 41 mmol/L (21-32) Anion Gap 1 (6-14) Blood Urea Nitrogen 22 mg/dL (8-26) Creatinine 0.7 mg/dL (0.7-1.3) Estimated GFR (Cockcroft-Gault) 113.5 BUN/Creatinine Ratio 31 (6-20) Glucose Level 229 mg/dL (70-99) Hemoglobin A1c 6.1 % (4.8-5.6) Calcium Level 9.5 mg/dL (8.5-10.1) Magnesium Level 2.1 mg/dL (1.8-2.4) Total Bilirubin 0.3 mg/dL (0.2-1.0) Aspartate Amino Transf (AST/SGOT) 20 U/L (15-37) Alanine Aminotransferase (ALT/SGPT) 17 U/L (16-63) Alkaline Phosphatase 46 U/L (46-116) Total Protein 7.3 g/dL (6.4-8.2) Albumin 2.6 g/dL (3.4-5.0) Albumin/Globulin Ratio 0.6 (1.0-1.7) Triglycerides Level 47 mg/dL (0-150) Cholesterol Level 154 mg/dL (0-200) LDL Cholesterol, Calculated 94 mg/dL (0-100) VLDL Cholesterol, Calculated 9 mg/dL (0-40) Non-HDL Cholesterol Calculated 103 mg/dL (0-129) HDL Cholesterol 51 mg/dL (40-60) Cholesterol/HDL Ratio 3.0 Thyroid Stimulating Hormone (TSH) 0.500 uIU/mL (0.358-3.74) D-Dimer (Patricia) 5.86 ug/mlFEU (0.00-0.50) SR-Vdn-K-Type Natriuretic Peptide 197 pg/mL (0-124) Test 08/08/17 15:35 O2 Saturation 85 % (92-99) Arterial Blood pH 7.47 (7.35-7.45) Arterial Blood pCO2 at Patient Temp 50 mmHg (35-46) Arterial Blood pO2 at Patient Temp 49 mmHg (65-108) Arterial Blood HCO3 36 mmol/L (21-28) Arterial Blood Base Excess 11 mmol/L (-3-3) FiO2 36.0 Medications Current Medications Potassium Chloride/Sodium Chloride 1,000 ml @ 100 mls/hr Q10H IV Last administered on 08/08/17 08:46; Start 08/07/17 at 23:00 Acetaminophen (Tylenol) 650 mg PRN Q6HRS PRN PO PAIN; Start 08/07/17 at 23:00 Ascorbic Acid (Vitamin C) 500 mg DAILY PO Last administered on 08/08/17 12:17 ; Start 08/08/17 at 09:00 Bisacodyl (Dulcolax Tab) 5 mg PRN 1X PRN PO CONSTIPATION; Start 08/07/17 at 23 :00 Bupropion HCl (Wellbutrin Sr) 300 mg DAILY PO Last administered on 08/08/17 12:15; Start 08/08/17 at 09:00 Buspirone HCl (Buspar) 5 mg QID PO Last administered on 08/08/17 12:15; Start 08/07/17 at 23:00 Cyanocobalamin (Vitamin B-12) 1,000 mcg DAILY PO Last administered on 12:18; Start 08/08/17 at 09:00 Divalproex Sodium (Depakote) 500 mg BID PO Last administered on 08/08/17 12: 27; Start 08/07/17 at 23:00 Docusate Sodium (Colace) 100 mg BID PO Last administered on 08/08/17 12:18; Start 08/08/17 at 09:00 Indapamide (Lozol) 2.5 mg QODAY PO ; Start 08/09/17 at 09:00 Magnesium Oxide (Magnesium Oxide) 400 mg TID PO Last administered on 12:23; Start 08/07/17 at 23:00 Mirtazapine (Remeron) 7.5 mg HS PO Last administered on 08/07/17 23:50; Start 08/07/17 at 23:00 Niacin (Slo-Niacin) 500 mg HS PO Last administered on 08/07/17 23:50; Start 08/07/17 at 23:00 Olanzapine (ZyPREXA) 2.5 mg PRN Q2HR PRN PO ANXIETY / AGITATION; Start at 23:00 Tamsulosin HCl (Flomax) 0.4 mg DAILY PO Last administered on 08/08/17 12:15; Start 08/08/17 at 09:00 Trazodone HCl (Desyrel) 100 mg PRN QHS PRN PO INSOMNIA; Start 08/07/17 at 23: 00 Ferrous Sulfate (Feosol) 325 mg DAILY PO Last administered on 08/08/17 12:18 ; Start 08/08/17 at 09:00 Fluvoxamine Maleate (Luvox) 75 mg QHS PO Last administered on 08/07/17 23:49 ; Start 08/07/17 at 23:00 Al Hydroxide/Mg Hydroxide (Mylanta Plus Xs) 30 ml PRN BID PRN PO DYSPEPSIA; Start 08/07/17 at 23:00 Magnesium Hydroxide (Milk Of Magnesia) 2,400 mg PRN DAILY PRN PO CONSTIPATION; Start 08/07/17 at 23:00 Nystatin (Nystop) 1 lizzette BID TP Last administered on 08/08/17 12:29; Start at 09:00 Nystatin (Mycostatin) 1 lizzette PRN Q8HRS PRN TP RASH; Start 08/07/17 at 23:00 Potassium Chloride (Klor-Con) 40 meq DAILY PO Last administered on 08/08/17 12:17; Start 08/08/17 at 09:00 Risperidone (RisperDAL) 2 mg BID PO Last administered on 08/08/17 12:15; Start 08/07/17 at 23:00 Non-Formulary Medication 325 ml PRN TP ; Start 08/07/17 at 23:00; Status UNV Methylprednisolone Sodium Succinate (SOLU-Medrol 40MG VIAL) 40 mg Q8HRS IV Last administered on 08/08/17 13:29; Start 08/08/17 at 00:00 Aspirin (Ecotrin) 81 mg DAILYWBKFT PO ; Start 08/09/17 at 08:00 Perflutren Protein Type A Microsphe (Optison) 0.66 mg 1X ONCE IV Last administered on 08/08/17 14:00; Start 08/08/17 at 14:00; Stop 08/08/17 at 14 :01; Status DC Perflutren Protein Type A Microsphe (Optison) 0.66 mg STK-MED ONCE IV ; Start 08/08/17 at 14:03; Stop 08/08/17 at 14:04; Status DC Iohexol (Omnipaque 300 Mg/ml) 75 ml 1X ONCE IV ; Start 08/08/17 at 15:15; Stop 08/08/17 at 15:16; Status DC Info (Do NOT chart on this entry -- for MONITORING) 1 each PRN DAILY PRN MC SEE COMMENTS; Start 08/08/17 at 15:15; Stop 08/10/17 at 15:14 Active Scripts Active Reported Trazodone Hcl 100 Mg Tablet 100 Mg PO HS PRN Risperidone 2 Mg Tablet 2 Mg PO BID Fluvoxamine Maleate 50 Mg Tablet 75 Mg PO QHS Mirtazapine 7.5 Mg Tablet 7.5 Mg PO HS Milk Of Magnesia (Magnesium Hydroxide) 2,400 Mg/10 Ml Oral.susp 2,400 Mg PO PRN PRN Maalox Advanced Suspension (Mag Hydrox/Aluminum Hyd/Simeth) 355 Ml Oral.susp 355 Ml PO PRN BID PRN Ferrous Sulfate 325 Mg Tablet.dr 325 Mg PO DAILY Vitamin B-12 (Cyanocobalamin (Vitamin B-12)) 1,000 Mcg Tablet 1,000 Mcg PO DAILY Dulcolax (Bisacodyl) 5 Mg Tablet. 1 Tab PO PRN PRN Buspirone Hcl 5 Mg Tablet 5 Mg PO QID Divalproex Sodium 500 Mg Tablet. 500 Mg PO BID Indapamide 2.5 Mg Tablet 2.5 Mg PO QODAY Niaspan (Niacin) 500 Mg Tab.er.24h 500 Mg PO HS Dandruff 1% Shampoo (Selenium Sulfide/Aloe Vera) 325 Ml Shampoo 325 Ml TP PRN Potassium Chloride 20 Meq Tablet.er 40 Meq PO DAILY Nystatin 15 Gm Oint...g. 15 Gm TP PRN Q8HRS PRN Olanzapine 2.5 Mg Tablet 2.5 Mg PO PRN Q2HR PRN Bupropion Hcl Sr (Bupropion Hcl) 100 Mg Tablet.er 300 Mg PO DAILY Ascorbic Acid 500 Mg Tablet 500 Mg PO DAILY Tamsulosin Hcl 0.4 Mg Cap.er.24h 1 Cap PO DAILY Tylenol (Acetaminophen) 325 Mg Tablet 650 Mg PO PRN Q6HRS PRN Magnesium Oxide 400 Mg Tablet 400 Mg PO TID Nystatin 1 Each Powder.ea. 1 Each PO BID Colace (Docusate Sodium) 100 Mg Capsule 1 Cap PO BID Vitals/I & O Vital Sign - Last 24 Hours 08/07/17 08/07/17 08/07/17 08/07/17 20:30 22:54 22:59 23:24 Temp 98.1 99.1 98.1 99.1 Pulse 93 95 Resp 18 B/P (MAP) 119/70 (86) 131/71 (91) Pulse Ox 92 89 91 O2 Delivery Nasal Cannula Nasal Cannula Nasal Cannula O2 Flow Rate 5.0 5.0 5.0 08/08/17 08/08/17 08/08/17 08/08/17 00:46 02:54 03:24 03:59 Temp 97.9 97.9 Pulse 71 Resp 18 B/P (MAP) 135/70 (91) Pulse Ox 92 92 92 92 O2 Delivery BiPAP/CPAP 08/08/17 08/08/17 08/08/17 08/08/17 04:50 07:00 08:00 10:55 Temp 98.4 98.2 98.4 98.2 Pulse 69 75 Resp 20 20 B/P (MAP) 111/65 (80) 124/65 (84) Pulse Ox 93 85 93 O2 Delivery BiPAP/CPAP Nasal Cannula BiPAP/CPAP O2 Flow Rate 5.0 08/08/17 08/08/17 11:00 15:08 Temp 97.8 97.8 Pulse 76 Resp 20 B/P (MAP) 126/72 (90) Pulse Ox 90 O2 Delivery Nasal Cannula Nasal Cannula O2 Flow Rate 5.0 5.0 Intake and Output 08/07/17 08/07/17 08/08/17 15:00 23:00 07:00 Intake Total 1750 ml Output Total 550 ml Balance 1200 ml NORTH GARCIA MD Aug 08, 2017 18:13
--- NOTE | 2017-08-08 18:36 | PDOC ---
PULMONARY PROGRESS NOTES Vitals Vital Signs Date Time Temp Pulse Resp B/P (MAP) Pulse Ox O2 Delivery O2 Flow Rate FiO2 08/08/17 15:08 97.8 76 20 126/72 (90) 90 Nasal Cannula 5.0 97.8 Lungs: Clear (decreased breath sounds) Labs Laboratory Tests Test 08/07/17 23:25 08/07/17 23:35 08/08/17 04:20 08/08/17 13:25 Troponin I Quantitative 0.141 ng/mL (0.000-0.055) 0.104 ng/mL (0.000-0.055) Nasal Screen MRSA (PCR) Negative (Negative) White Blood Count 7.6 x10^3/uL (4.0-11.0) Red Blood Count 3.83 x10^6/uL (4.30-5.70) Hemoglobin 10.1 g/dL (13.0-17.5) Hematocrit 31.5 % (39.0-53.0) Mean Corpuscular Volume 82 fL (79-100) Mean Corpuscular Hemoglobin 27 pg (25-35) Mean Corpuscular Hemoglobin Concent 32 g/dL (31-37) Red Cell Distribution Width 16.7 % (11.5-14.5) Platelet Count 221 x10^3/uL (140-400) Neutrophils (%) (Auto) 89 % (31-73) Lymphocytes (%) (Auto) 9 % (24-48) Monocytes (%) (Auto) 1 % (0-9) Eosinophils (%) (Auto) 0 % (0-3) Basophils (%) (Auto) 0 % (0-3) Neutrophils # (Auto) 6.8 x10^3uL (1.8-7.7) Lymphocytes # (Auto) 0.7 x10^3/uL (1.0-4.8) Monocytes # (Auto) 0.1 x10^3/uL (0.0-1.1) Eosinophils # (Auto) 0.0 x10^3/uL (0.0-0.7) Basophils # (Auto) 0.0 x10^3/uL (0.0-0.2) Segmented Neutrophils % 89 % (35-66) Band Neutrophils % 2 % (0-9) Lymphocytes % 7 % (24-48) Monocytes % 2 % (0-10) Platelet Estimate Adequate (ADEQUATE) Polychromasia Slight Anisocytosis Slight Sodium Level 134 mmol/L (136-145) Potassium Level 3.3 mmol/L (3.5-5.1) Chloride Level 92 mmol/L (98-107) Carbon Dioxide Level 41 mmol/L (21-32) Anion Gap 1 (6-14) Blood Urea Nitrogen 22 mg/dL (8-26) Creatinine 0.7 mg/dL (0.7-1.3) Estimated GFR (Cockcroft-Gault) 113.5 BUN/Creatinine Ratio 31 (6-20) Glucose Level 229 mg/dL (70-99) Hemoglobin A1c 6.1 % (4.8-5.6) Calcium Level 9.5 mg/dL (8.5-10.1) Magnesium Level 2.1 mg/dL (1.8-2.4) Total Bilirubin 0.3 mg/dL (0.2-1.0) Aspartate Amino Transf (AST/SGOT) 20 U/L (15-37) Alanine Aminotransferase (ALT/SGPT) 17 U/L (16-63) Alkaline Phosphatase 46 U/L (46-116) Total Protein 7.3 g/dL (6.4-8.2) Albumin 2.6 g/dL (3.4-5.0) Albumin/Globulin Ratio 0.6 (1.0-1.7) Triglycerides Level 47 mg/dL (0-150) Cholesterol Level 154 mg/dL (0-200) LDL Cholesterol, Calculated 94 mg/dL (0-100) VLDL Cholesterol, Calculated 9 mg/dL (0-40) Non-HDL Cholesterol Calculated 103 mg/dL (0-129) HDL Cholesterol 51 mg/dL (40-60) Cholesterol/HDL Ratio 3.0 Thyroid Stimulating Hormone (TSH) 0.500 uIU/mL (0.358-3.74) D-Dimer (Patricia) 5.86 ug/mlFEU (0.00-0.50) OP-Bwy-S-Type Natriuretic Peptide 197 pg/mL (0-124) Test 08/08/17 15:35 O2 Saturation 85 % (92-99) Arterial Blood pH 7.47 (7.35-7.45) Arterial Blood pCO2 at Patient Temp 50 mmHg (35-46) Arterial Blood pO2 at Patient Temp 49 mmHg (65-108) Arterial Blood HCO3 36 mmol/L (21-28) Arterial Blood Base Excess 11 mmol/L (-3-3) FiO2 36.0 Laboratory Tests Test 08/07/17 23:25 08/07/17 23:35 08/08/17 04:20 08/08/17 13:25 Troponin I Quantitative 0.141 ng/mL (0.000-0.055) 0.104 ng/mL (0.000-0.055) Nasal Screen MRSA (PCR) Negative (Negative) White Blood Count 7.6 x10^3/uL (4.0-11.0) Red Blood Count 3.83 x10^6/uL (4.30-5.70) Hemoglobin 10.1 g/dL (13.0-17.5) Hematocrit 31.5 % (39.0-53.0) Mean Corpuscular Volume 82 fL (79-100) Mean Corpuscular Hemoglobin 27 pg (25-35) Mean Corpuscular Hemoglobin Concent 32 g/dL (31-37) Red Cell Distribution Width 16.7 % (11.5-14.5) Platelet Count 221 x10^3/uL (140-400) Neutrophils (%) (Auto) 89 % (31-73) Lymphocytes (%) (Auto) 9 % (24-48) Monocytes (%) (Auto) 1 % (0-9) Eosinophils (%) (Auto) 0 % (0-3) Basophils (%) (Auto) 0 % (0-3) Neutrophils # (Auto) 6.8 x10^3uL (1.8-7.7) Lymphocytes # (Auto) 0.7 x10^3/uL (1.0-4.8) Monocytes # (Auto) 0.1 x10^3/uL (0.0-1.1) Eosinophils # (Auto) 0.0 x10^3/uL (0.0-0.7) Basophils # (Auto) 0.0 x10^3/uL (0.0-0.2) Segmented Neutrophils % 89 % (35-66) Band Neutrophils % 2 % (0-9) Lymphocytes % 7 % (24-48) Monocytes % 2 % (0-10) Platelet Estimate Adequate (ADEQUATE) Polychromasia Slight Anisocytosis Slight Sodium Level 134 mmol/L (136-145) Potassium Level 3.3 mmol/L (3.5-5.1) Chloride Level 92 mmol/L (98-107) Carbon Dioxide Level 41 mmol/L (21-32) Anion Gap 1 (6-14) Blood Urea Nitrogen 22 mg/dL (8-26) Creatinine 0.7 mg/dL (0.7-1.3) Estimated GFR (Cockcroft-Gault) 113.5 BUN/Creatinine Ratio 31 (6-20) Glucose Level 229 mg/dL (70-99) Hemoglobin A1c 6.1 % (4.8-5.6) Calcium Level 9.5 mg/dL (8.5-10.1) Magnesium Level 2.1 mg/dL (1.8-2.4) Total Bilirubin 0.3 mg/dL (0.2-1.0) Aspartate Amino Transf (AST/SGOT) 20 U/L (15-37) Alanine Aminotransferase (ALT/SGPT) 17 U/L (16-63) Alkaline Phosphatase 46 U/L (46-116) Total Protein 7.3 g/dL (6.4-8.2) Albumin 2.6 g/dL (3.4-5.0) Albumin/Globulin Ratio 0.6 (1.0-1.7) Triglycerides Level 47 mg/dL (0-150) Cholesterol Level 154 mg/dL (0-200) LDL Cholesterol, Calculated 94 mg/dL (0-100) VLDL Cholesterol, Calculated 9 mg/dL (0-40) Non-HDL Cholesterol Calculated 103 mg/dL (0-129) HDL Cholesterol 51 mg/dL (40-60) Cholesterol/HDL Ratio 3.0 Thyroid Stimulating Hormone (TSH) 0.500 uIU/mL (0.358-3.74) D-Dimer (Patricia) 5.86 ug/mlFEU (0.00-0.50) PH-Tfl-W-Type Natriuretic Peptide 197 pg/mL (0-124) Test 08/08/17 15:35 O2 Saturation 85 % (92-99) Arterial Blood pH 7.47 (7.35-7.45) Arterial Blood pCO2 at Patient Temp 50 mmHg (35-46) Arterial Blood pO2 at Patient Temp 49 mmHg (65-108) Arterial Blood HCO3 36 mmol/L (21-28) Arterial Blood Base Excess 11 mmol/L (-3-3) FiO2 36.0 Medications Active Scripts Medications Dose Route/Sig Max Daily Dose Days Date Category Trazodone Hcl 100 Mg Tablet 100 Mg PO HS PRN 08/07/17 Reported Risperidone 2 Mg Tablet 2 Mg PO BID 08/07/17 Reported Fluvoxamine Maleate 50 Mg Tablet 75 Mg PO QHS 08/07/17 Reported Mirtazapine 7.5 Mg Tablet 7.5 Mg PO HS 08/07/17 Reported Milk Of Magnesia (Magnesium Hydroxide) 2,400 Mg/10 Ml Oral.susp 2,400 Mg PO PRN PRN 08/07/17 Reported Maalox Advanced Suspension (Mag Hydrox/Aluminum Hyd/Simeth) 355 Ml Oral.susp 355 Ml PO PRN BID PRN 08/07/17 Reported Ferrous Sulfate 325 Mg Tablet.dr 325 Mg PO DAILY 08/07/17 Reported Vitamin B-12 (Cyanocobalamin (Vitamin B-12)) 1,000 Mcg Tablet 1,000 Mcg PO DAILY 08/07/17 Reported Dulcolax (Bisacodyl) 5 Mg Tablet.dr 1 Tab PO PRN PRN 08/07/17 Reported Buspirone Hcl 5 Mg Tablet 5 Mg PO QID 08/07/17 Reported Divalproex Sodium 500 Mg Tablet.dr 500 Mg PO BID 08/07/17 Reported Indapamide 2.5 Mg Tablet 2.5 Mg PO QODAY 08/07/17 Reported Niaspan (Niacin) 500 Mg Tab.er.24h 500 Mg PO HS 08/07/17 Reported Dandruff 1% Shampoo (Selenium Sulfide/Aloe Vera) 325 Ml Shampoo 325 Ml TP PRN 08/07/17 Reported Potassium Chloride 20 Meq Tablet.er 40 Meq PO DAILY 08/07/17 Reported Nystatin 15 Gm Oint...g. 15 Gm TP PRN Q8HRS PRN 08/07/17 Reported Olanzapine 2.5 Mg Tablet 2.5 Mg PO PRN Q2HR PRN 08/07/17 Reported Bupropion Hcl Sr (Bupropion Hcl) 100 Mg Tablet.er 300 Mg PO DAILY 08/07/17 Reported Ascorbic Acid 500 Mg Tablet 500 Mg PO DAILY 08/07/17 Reported Tamsulosin Hcl 0.4 Mg Cap.er.24h 1 Cap PO DAILY 08/07/17 Reported Tylenol (Acetaminophen) 325 Mg Tablet 650 Mg PO PRN Q6HRS PRN 08/07/17 Reported Magnesium Oxide 400 Mg Tablet 400 Mg PO TID 08/07/17 Reported Nystatin 1 Each Powder.ea. 1 Each PO BID 08/07/17 Reported Colace (Docusate Sodium) 100 Mg Capsule 1 Cap PO BID 08/07/17 Reported Impression . DICTATED NO PE D/W DR GARCIA WORK UP FOR METASTATIC DZ SARITHA/OHS THANKS PLACIDO URIBE MD Aug 08, 2017 18:36
[2017-08-08] MEDS: NIACIN ER 500 MG TABLET.ER PO SCH (21:39)
[2017-08-08] MEDS: LACTOBACILLUS RHAMNOSUS GG 1 CAPSULE. PO SCH (21:39)
[2017-08-08] MEDS: MIRTAZAPINE 7.5 MG TABLET. PO SCH (21:40)
[2017-08-08] MEDS: cefTRIAXone IV Push 1 GM VIAL. IVP SCH (21:41)
--- NOTE | 2017-08-08 22:39 | CONS ---
DATE OF CONSULTATION: 08/08/2017 ATTENDING PHYSICIAN: Colette Hampton MD REASON FOR CONSULTATION: The patient seen in pulmonary consultation at the request of Dr. Hampton for positive D-dimer, hypoxemia. Arterial blood gas revealing pH of 7.47, pCO2 of 50, pO2 of 49 on 36% FIO2. HISTORY OF PRESENT ILLNESS: The patient is a 66-year-old male who is a very poor historian, morbid obese individual with psychiatric issues, underlying COPD, CHF, presented to the senior living at [facility] with difficulty breathing and was found to have saturations of 82% on room air, he was placed on nasal cannula and transferred to [facility]. He was seen in consultation by Cardiology. D-dimer was obtained, which was positive. Subsequent CT of the chest was obtained. I reviewed the CT, there is no central pulmonary emboli. Otherwise, there is evidence of peritoneal omental metastatic disease. The patient is unable to provide any significant history. He is not short of breath. He denies chest pain or pressure. PAST MEDICAL HISTORY: Chronic heart failure, hypertension, chronic lymphedema, obstructive sleep apnea on CPAP, psychiatric disorder including bipolar depression. I believe he is also mentally challenged. has a history of osteoarthritis, hypernatremia. PAST SURGICAL HISTORY: No recent major surgeries. ALLERGIES: SULFA. CURRENT MEDICATIONS: List was reviewed. REVIEW OF SYSTEMS: Unobtainable secondary to the patient's status. PHYSICAL EXAMINATION: GENERAL: The patient was in no significant respiratory distress. VITAL SIGNS: He was eating dinner. He was on oxygen supplementation, saturations were greater than 92%. HEENT: Eyes, the sclerae were nonicteric. NECK: Jugular venous distention could not be assessed secondary to body habitus. CHEST: Full expansion. LUNGS: Adequate airway flow, no wheezes. CARDIOVASCULAR: Regular rate and rhythm with S1, S2, no S3. ABDOMEN: Obese. EXTREMITIES: Obese with 1+ edema. NEUROLOGIC: The patient was able to lift his legs off the bed with no significant difficulty. Otherwise, a detailed neuro exam was not performed. LABORATORY DATA: White count was normal. Hemoglobin and hematocrit were noted. Electrolytes were noted. Blood gas as indicated above. D-dimer was positive. Troponin was slightly elevated. Albumin is low. IMPRESSION: 1. Acute on chronic hypoxemic hypercapnic respiratory failure. 2. Positive D-dimer, nonspecific. 3. CT angiogram revealing no evidence of central pulmonary emboli. 4. Chronic obstructive pulmonary disease. 5. Obstructive sleep apnea. 6. Abnormal CT chest revealing evidence of peritoneum and omentum metastatic disease. 7. Protein malnutrition present upon admission. 8. Morbid obesity, body mass index of 45.8. PLAN: 1. Suspect most of the patient's hypoxemia and hypercapnia is related to his body habitus, obesity hypoventilation syndrome. We will continue oxygen supplementation. 2. BiPAP p.r.n. and at bedtime. 3. This case discussed with Dr. Hampton. Workup for peritoneal and omental metastatic disease per PCP. 4. Follow cardiology input. 5. Echo pending. 6. Consult dietitian. I do appreciate the privilege in sharing in the patient's care. PLACIDO URIBE MD DR: BRICE/jose JOB#: [id number] / [id number]
[2017-08-09 03:30] VITALS: BP 119/60
[2017-08-09] MEDS: methylPREDNISolone SOD SUCC PF 40 MG/ML VIAL. IV SCH ×3 (05:35→21:24)
[2017-08-09] MEDS: POTASSIUM CL 20MEQ-0.45% NACL 1,000 ML IV SCH ×2 (05:35→17:16)
[2017-08-09 07:00] VITALS: BP 124/68
[2017-08-09] MEDS ORDERED: CONTRAST GIVEN MC PRN ×2 (08:45→09:00)
[2017-08-09] MEDS ORDERED: IOHEXOL 300 MG/ML 100ML VIAL. IV ONE ×2 (08:45→09:00)
[2017-08-09] MEDS ORDERED: IOHEXOL 240 MG/ML 50ML VIAL. PO ONE (08:45)
--- NOTE | 2017-08-09 08:51 | PDOC ---
PULMONARY PROGRESS NOTES Subjective PT WANTS TO GO HOME Vitals Vital Signs Date Time Temp Pulse Resp B/P (MAP) Pulse Ox O2 Delivery O2 Flow Rate FiO2 08/09/17 07:00 99.0 73 22 124/68 (86) 95 BiPAP/CPAP 99.0 08/08/17 23:25 5.0 Lungs: Clear (decreased breath sounds) Cardiovascular: S1, S2 Abdomen: Soft Neuro Exam: Alert Extremities: Other (EDEMA) Skin: Warm Labs Laboratory Tests Test 08/07/17 23:25 08/07/17 23:35 08/08/17 04:20 08/08/17 13:25 Troponin I Quantitative 0.141 ng/mL (0.000-0.055) 0.104 ng/mL (0.000-0.055) Nasal Screen MRSA (PCR) Negative (Negative) White Blood Count 7.6 x10^3/uL (4.0-11.0) Red Blood Count 3.83 x10^6/uL (4.30-5.70) Hemoglobin 10.1 g/dL (13.0-17.5) Hematocrit 31.5 % (39.0-53.0) Mean Corpuscular Volume 82 fL (79-100) Mean Corpuscular Hemoglobin 27 pg (25-35) Mean Corpuscular Hemoglobin Concent 32 g/dL (31-37) Red Cell Distribution Width 16.7 % (11.5-14.5) Platelet Count 221 x10^3/uL (140-400) Neutrophils (%) (Auto) 89 % (31-73) Lymphocytes (%) (Auto) 9 % (24-48) Monocytes (%) (Auto) 1 % (0-9) Eosinophils (%) (Auto) 0 % (0-3) Basophils (%) (Auto) 0 % (0-3) Neutrophils # (Auto) 6.8 x10^3uL (1.8-7.7) Lymphocytes # (Auto) 0.7 x10^3/uL (1.0-4.8) Monocytes # (Auto) 0.1 x10^3/uL (0.0-1.1) Eosinophils # (Auto) 0.0 x10^3/uL (0.0-0.7) Basophils # (Auto) 0.0 x10^3/uL (0.0-0.2) Segmented Neutrophils % 89 % (35-66) Band Neutrophils % 2 % (0-9) Lymphocytes % 7 % (24-48) Monocytes % 2 % (0-10) Platelet Estimate Adequate (ADEQUATE) Polychromasia Slight Anisocytosis Slight Sodium Level 134 mmol/L (136-145) Potassium Level 3.3 mmol/L (3.5-5.1) Chloride Level 92 mmol/L (98-107) Carbon Dioxide Level 41 mmol/L (21-32) Anion Gap 1 (6-14) Blood Urea Nitrogen 22 mg/dL (8-26) Creatinine 0.7 mg/dL (0.7-1.3) Estimated GFR (Cockcroft-Gault) 113.5 BUN/Creatinine Ratio 31 (6-20) Glucose Level 229 mg/dL (70-99) Hemoglobin A1c 6.1 % (4.8-5.6) Calcium Level 9.5 mg/dL (8.5-10.1) Magnesium Level 2.1 mg/dL (1.8-2.4) Total Bilirubin 0.3 mg/dL (0.2-1.0) Aspartate Amino Transf (AST/SGOT) 20 U/L (15-37) Alanine Aminotransferase (ALT/SGPT) 17 U/L (16-63) Alkaline Phosphatase 46 U/L (46-116) Total Protein 7.3 g/dL (6.4-8.2) Albumin 2.6 g/dL (3.4-5.0) Albumin/Globulin Ratio 0.6 (1.0-1.7) Triglycerides Level 47 mg/dL (0-150) Cholesterol Level 154 mg/dL (0-200) LDL Cholesterol, Calculated 94 mg/dL (0-100) VLDL Cholesterol, Calculated 9 mg/dL (0-40) Non-HDL Cholesterol Calculated 103 mg/dL (0-129) HDL Cholesterol 51 mg/dL (40-60) Cholesterol/HDL Ratio 3.0 Thyroid Stimulating Hormone (TSH) 0.500 uIU/mL (0.358-3.74) D-Dimer (Patricia) 5.86 ug/mlFEU (0.00-0.50) BM-Xxc-E-Type Natriuretic Peptide 197 pg/mL (0-124) Test 08/08/17 15:35 O2 Saturation 85 % (92-99) Arterial Blood pH 7.47 (7.35-7.45) Arterial Blood pCO2 at Patient Temp 50 mmHg (35-46) Arterial Blood pO2 at Patient Temp 49 mmHg (65-108) Arterial Blood HCO3 36 mmol/L (21-28) Arterial Blood Base Excess 11 mmol/L (-3-3) FiO2 36.0 Laboratory Tests Test 08/08/17 13:25 08/08/17 15:35 D-Dimer (Patricia) 5.86 ug/mlFEU (0.00-0.50) NB-Asv-J-Type Natriuretic Peptide 197 pg/mL (0-124) O2 Saturation 85 % (92-99) Arterial Blood pH 7.47 (7.35-7.45) Arterial Blood pCO2 at Patient Temp 50 mmHg (35-46) Arterial Blood pO2 at Patient Temp 49 mmHg (65-108) Arterial Blood HCO3 36 mmol/L (21-28) Arterial Blood Base Excess 11 mmol/L (-3-3) FiO2 36.0 Medications Active Scripts Medications Dose Route/Sig Max Daily Dose Days Date Category Trazodone Hcl 100 Mg Tablet 100 Mg PO HS PRN 08/07/17 Reported Risperidone 2 Mg Tablet 2 Mg PO BID 08/07/17 Reported Fluvoxamine Maleate 50 Mg Tablet 75 Mg PO QHS 08/07/17 Reported Mirtazapine 7.5 Mg Tablet 7.5 Mg PO HS 08/07/17 Reported Milk Of Magnesia (Magnesium Hydroxide) 2,400 Mg/10 Ml Oral.susp 2,400 Mg PO PRN PRN 08/07/17 Reported Maalox Advanced Suspension (Mag Hydrox/Aluminum Hyd/Simeth) 355 Ml Oral.susp 355 Ml PO PRN BID PRN 08/07/17 Reported Ferrous Sulfate 325 Mg Tablet. 325 Mg PO DAILY 08/07/17 Reported Vitamin B-12 (Cyanocobalamin (Vitamin B-12)) 1,000 Mcg Tablet 1,000 Mcg PO DAILY 08/07/17 Reported Dulcolax (Bisacodyl) 5 Mg Tablet. 1 Tab PO PRN PRN 08/07/17 Reported Buspirone Hcl 5 Mg Tablet 5 Mg PO QID 08/07/17 Reported Divalproex Sodium 500 Mg Tablet. 500 Mg PO BID 08/07/17 Reported Indapamide 2.5 Mg Tablet 2.5 Mg PO QODAY 08/07/17 Reported Niaspan (Niacin) 500 Mg Tab.er.24h 500 Mg PO HS 08/07/17 Reported Dandruff 1% Shampoo (Selenium Sulfide/Aloe Vera) 325 Ml Shampoo 325 Ml TP PRN 08/07/17 Reported Potassium Chloride 20 Meq Tablet.er 40 Meq PO DAILY 08/07/17 Reported Nystatin 15 Gm Oint...g. 15 Gm TP PRN Q8HRS PRN 08/07/17 Reported Olanzapine 2.5 Mg Tablet 2.5 Mg PO PRN Q2HR PRN 08/07/17 Reported Bupropion Hcl Sr (Bupropion Hcl) 100 Mg Tablet.er 300 Mg PO DAILY 08/07/17 Reported Ascorbic Acid 500 Mg Tablet 500 Mg PO DAILY 08/07/17 Reported Tamsulosin Hcl 0.4 Mg Cap.er.24h 1 Cap PO DAILY 08/07/17 Reported Tylenol (Acetaminophen) 325 Mg Tablet 650 Mg PO PRN Q6HRS PRN 08/07/17 Reported Magnesium Oxide 400 Mg Tablet 400 Mg PO TID 08/07/17 Reported Nystatin 1 Each Powder.ea. 1 Each PO BID 08/07/17 Reported Colace (Docusate Sodium) 100 Mg Capsule 1 Cap PO BID 08/07/17 Reported Impression . IMPRESSION: 1. Acute on chronic hypoxemic hypercapnic respiratory failure. 2. Positive D-dimer, nonspecific. 3. CT angiogram revealing no evidence of central pulmonary emboli. 4. Chronic obstructive pulmonary disease. 5. Obstructive sleep apnea. 6. Abnormal CT chest revealing evidence of peritoneum and omentum metastatic disease. 7. Protein malnutrition present upon admission. 8. Morbid obesity, body mass index of 45.8. Plan . PT TO BE SEEN BY ONCOLOGY I DONT THINK HE IS A CANDIDATE FOR TREATMENT CONSIDER PALLIATIVE CARE 1. Suspect most of the patient's hypoxemia and hypercapnia is related to his body habitus, obesity hypoventilation syndrome. We will continue oxygen supplementation. 2. BiPAP p.r.n. and at bedtime. 3. MED ONCO CONSULTED 5. Echo pending. 6. Consult dietitian. PLACIDO URIBE MD Aug 09, 2017 08:51
[2017-08-09] MEDS ORDERED: INDAPAMIDE 2.5 MG TABLET PO SCH (09:00)
--- NOTE | 2017-08-09 09:01 | PDOC ---
Provider Note Provider Note Med Onc consult: 1. Peritoneal mets - await CT abd/pelvis Poor prognosis in pts with peritoneal mets. Poor functional status, consult palliative care see dictation [id number] GABY SCHRADER MD Aug 09, 2017 09:01
[2017-08-09] MEDS: LACTOBACILLUS RHAMNOSUS GG 1 CAPSULE. PO SCH ×2 (09:21→21:23)
[2017-08-09] MEDS: buPROPion SR 100 MG TABLET.SA. PO SCH (09:22)
[2017-08-09] MEDS: ASCORBIC ACID 500 MG TABLET PO SCH (09:23)
[2017-08-09] MEDS: TAMSULOSIN 0.4 MG CAP.ER.24H. PO SCH (09:23)
[2017-08-09] MEDS: FERROUS SULFATE 325 MG TABLET. PO SCH (09:23)
[2017-08-09] MEDS: CYANOCOBALAMIN (VITAMIN B-12) 1,000 MCG TABLET. PO SCH (09:23)
[2017-08-09] MEDS: DIVALPROEX DELAYED RELEASE 500 MG TABLET.DR. PO SCH ×2 (09:23→21:23)
[2017-08-09] MEDS: POTASSIUM CHLORIDE 20 MEQ TABLET.ER. PO SCH (09:24)
[2017-08-09] MEDS: MAGNESIUM OXIDE 400 MG TABLET PO SCH ×3 (09:24→21:23)
[2017-08-09] MEDS: risperiDONE 1 MG TABLET. PO SCH ×2 (09:24→21:23)
[2017-08-09] MEDS: busPIRone 5 MG TABLET. PO SCH ×4 (09:24→21:23)
[2017-08-09] MEDS: ASPIRIN ENTERIC COATED 81 MG TABLET.DR. PO SCH (09:24)
[2017-08-09] MEDS: DOCUSATE SODIUM 100 MG CAPSULE. PO SCH ×2 (09:24→21:23)
[2017-08-09] MEDS: NYSTATIN TOPICAL POWDER 15GM BOTTLE. TP SCH ×3 (09:25→21:28)
[2017-08-09] MEDS ORDERED: IOHEXOL 300 MG/ML 100ML VIAL. ONE (09:43)
--- NOTE | 2017-08-09 09:58 | PDOC2 ---
GI CONSULT Reason For Consult: Peritoneal mets, eval for colon primary HPI: HPI: 66 y/o male admitted w/ resp failure. Had elevated D-dimer; CT chest neg for PE but showed peritoneal and omental metastatic disease. Oncology has seen, CT A/ P is ordered. The patient has some cognitive impairment, unable to provide meaningful history. Has DPOA (not present) and palliative care has been consulted. No GI concerns per RN. PMH: PMH: per chart - CHF, HTN, DM, chronic lymphedema, SARITHA/CPAP, cognitive impairment, bipolar, depression, OA, vit D deficiency FH: Family History: Other (unable to obtain) Social History: Smoke: No ALCOHOL: none Drugs: None ROS: Unobtainable, says "I'm going home tomorrow!" Vitals: Vitals: Vital Signs Date Time Temp Pulse Resp B/P (MAP) Pulse Ox O2 Delivery O2 Flow Rate FiO2 08/09/17 07:00 99.0 73 22 124/68 (86) 95 BiPAP/CPAP 99.0 08/08/17 23:25 5.0 Labs: Labs: Laboratory Tests Test 08/08/17 13:25 08/08/17 15:35 D-Dimer (Patricia) 5.86 ug/mlFEU (0.00-0.50) TM-Ahb-C-Type Natriuretic Peptide 197 pg/mL (0-124) O2 Saturation 85 % (92-99) Arterial Blood pH 7.47 (7.35-7.45) Arterial Blood pCO2 at Patient Temp 50 mmHg (35-46) Arterial Blood pO2 at Patient Temp 49 mmHg (65-108) Arterial Blood HCO3 36 mmol/L (21-28) Arterial Blood Base Excess 11 mmol/L (-3-3) FiO2 36.0 Allergies: Coded Allergies: Sulfa (Sulfonamide Antibiotics) (Verified Allergy, Intermediate, 08/07/17) Medications: Current Medications Medications (Trade) Dose Ordered Sig/Corrie Route PRN Reason Start Time Stop Time Status Last Admin Dose Admin Indapamide (Lozol) 2.5 mg QODAY PO 08/09/17 09:00 08/09/17 09:23 Aspirin (Ecotrin) 81 mg DAILYWBKFT PO 08/09/17 08:00 08/09/17 09:24 Perflutren Protein Type A Microsphe (Optison) 0.66 mg 1X ONCE IV 08/08/17 14:00 08/08/17 14:01 DC 08/08/17 14:00 Ceftriaxone Sodium (Rocephin) 1 gm Q24H IVP 08/08/17 20:00 08/08/17 21:41 Lactobacillus Rhamnosus (Culturelle) 1 cap BID PO 08/08/17 21:00 08/09/17 09:21 Imaging: Imaging: CXR Impression: Cardiomegaly. CT Chest IMPRESSION: 1. Peritoneal and omental metastatic disease, partially visualized. Correlate for known diagnosis. CT of the abdomen/pelvis could further evaluate if unclear. 2. Respiratory motion artifact limits sensitivity for small pulmonary emboli. Note is seen. Echocardiogram <Conclusion> Technically difficult study. The left ventricle is normal size. Left ventricle systolic function is normal. The Ejection Fraction is 50-55%. There is borderline to mild concentric left ventricular hypertrophy. RV systolic function is mildly reduced. There is no significant aortic valvular stenosis. Doppler and Color Flow revealed no significant aortic regurgitation. Doppler and Color Flow revealed mild to moderate mitral regurgitation. Doppler and Color Flow revealed mild tricuspid regurgitation. The PA pressure was estimated at 32 mmHg. The aortic root is mildily enlarged. The ascending aorta is dilated measuring 4.1 cm. There is no evidence of significant pericardial effusion. PE: GEN: NAD HEENT: Atraumatic, PERRL LUNGS: diminished anteriorly HEART: distant ABD: obese, soft, non-tender, BS+ EXTREMITY: BLE pitting edema SKIN: No rashes, no jaundice NEURO/PSYCH: awake/alert A/P: A/P: Resp failure w/ elevated D-dimer Abnormal chest CT w/ peritoneal and omental metastatic disease Cognitive impairment Normocytic anemia -- Difficult historian. Await CT A/P and palliative care discussion w/ DPOA. ROSA PARMAR Aug 09, 2017 09:58
[2017-08-09 10:07] LABS: % SAT IRON 4 % (15-34); IRON,SERUM 13 ug/dL (65-175)
[2017-08-09 10:28] LABS: FOLATE 2.45 ng/ml (3.2-20.0)
--- NOTE | 2017-08-09 10:52 | CONS ---
DATE OF CONSULTATION: 08/09/2017 REQUESTING PHYSICIAN: Colette Hampton MD. REASON FOR CONSULTATION: Peritoneal metastasis. HISTORY OF PRESENT ILLNESS: The patient is a 66-year-old gentleman who has a history of COPD, CHF, multiple psychiatric issues, who presented to the Emergency Room at [facility] from the [facility] with complaints of difficulty breathing. He was noted to have an oxygen saturation of 82%. He was also noted to be confused in the Emergency Room and the EMS had found him in a puddle of foul-smelling urine. He was admitted to [facility] on 08/07/2017. He underwent a CT angiogram of the chest on 08/08/2017, which revealed peritoneal and omental metastatic disease. Hence, I was consulted for further evaluation. He is currently on BiPAP. He is a poor historian. He denies chest pain or palpitations. No fever, chills or night sweats. PAST MEDICAL HISTORY: Congestive heart failure; hypertension; chronic lymphedema; obstructive sleep apnea, on CPAP; psychiatric disorder; bipolar depression. He is also mentally challenged. He also has history of osteoarthritis and hyponatremia. SOCIAL HISTORY: Living at [facility]. No smoking or alcohol abuse. FAMILY HISTORY: No known family history of malignancy. The patient unable to give a good history. REVIEW OF SYSTEMS: A 12-point review of system was performed. Pertinent positives are mentioned in the history of present illness. Rest of the system review is negative. PHYSICAL EXAMINATION: GENERAL APPEARANCE: The patient is a 66-year-old gentleman who is obese and in no acute cardiorespiratory distress. He is on BiPAP. HEAD: Atraumatic, normocephalic. EYES: No icterus. NECK: Supple. CHEST: Bilaterally symmetrical. HEART: S1, S2 normal. ABDOMEN: Soft, nontender. CENTRAL NERVOUS SYSTEM: No focal deficits. LYMPHATICS: No lymphadenopathy. SKIN: No rashes. PSYCHOLOGIC: He has a flat affect. MUSCULOSKELETAL: No joint effusions. LABORATORY DATA: WBC 7.6, hemoglobin 10.1, platelet count 221. Sodium 134, potassium 3.3, creatinine 0.7, total bilirubin 0.3, AST 20, ALT 17, alkaline phosphatase 46, albumin 2.6. IMPRESSION AND PLAN: 1. Peritoneal and omental metastatic disease noted on CT angiogram of the chest performed on 08/08/2017. I will obtain CT scan of the abdomen and pelvis for further evaluation. I will also consult Gastroenterology as colon cancer can present as peritoneal and omental metastatic disease. His functional status is poor and I do not think that he will be able to tolerate aggressive chemotherapy. In addition, chemotherapy would be palliative. He is also not a candidate for aggressive surgical resection. Hence, I will consult Palliative Care for treatment goals and coordination with family. I discussed with Palliative Care team. I also discussed with the registered nurse. 2. Dyspnea. Appreciate pulmonary consultation. He has acute on chronic hypoxemic hypercapnic respiratory failure. Continue management per Pulmonary Medicine. 3. Anemia. I will check iron studies. 4. I will also order a CEA level. GABY SCHRADER MD DR: APURVA/jose JOB#: [id number] / [id number] RAFIA
--- NOTE | 2017-08-09 10:59 | PDOC ---
CARDIO Progress Notes Date and Time Date of Service 08/09/17 Time of Evaluation 1055 Subjective Subjective: No Chest Pain, No Palpitations, No Dizziness, Other (wanting to go home ) Vitals Vitals Vital Signs Date Time Temp Pulse Resp B/P (MAP) Pulse Ox O2 Delivery O2 Flow Rate FiO2 08/09/17 07:00 99.0 73 22 124/68 (86) 95 BiPAP/CPAP 99.0 08/08/17 23:25 5.0 Weight Weight [ ] Input and Output Intake and Output Intake and Output 08/09/17 07:00 Intake Total 6820 ml Output Total 4325 ml Balance 2495 ml Intake Oral 6820 ml Output Urine Total 4325 ml Laboratory Labs Laboratory Tests Test 08/08/17 13:25 08/08/17 15:35 08/09/17 09:05 D-Dimer (Patricia) 5.86 ug/mlFEU (0.00-0.50) NJ-Kxc-W-Type Natriuretic Peptide 197 pg/mL (0-124) O2 Saturation 85 % (92-99) Arterial Blood pH 7.47 (7.35-7.45) Arterial Blood pCO2 at Patient Temp 50 mmHg (35-46) Arterial Blood pO2 at Patient Temp 49 mmHg (65-108) Arterial Blood HCO3 36 mmol/L (21-28) Arterial Blood Base Excess 11 mmol/L (-3-3) FiO2 36.0 Reticulocyte Count (auto) 1.9 % (0.5-2.5) Iron Level 13 ug/dL (65-175) Total Iron Binding Capacity 369 ug/dL (250-450) Iron Saturation 4 % (15-34) Ferritin 29 ng/mL (26-388) Vitamin B12 Level 1702 pg/mL (247-911) Serum Folate 2.45 ng/ml (3.2-20.0) Physical Exam HEENT: Neck Supple W Full Motion Chest: Symmetric LUNGS: Other (diminished bases ) Heart: S1S2, RRR, other (2/6 systolic murmur ) Abdomen: Other (obese) Extremities: Other (trace bi LE edema ) Neurology: alert, follow commands, confused Assessment Assessment 1. Acute respiratory failure with underlying COPD, obesity/hypoventilation syndrome; improved. Off BiPAP. Remains hypoxic 2. Elevated troponin: peaked at 0.196, Likely type II, demand ischemia 2/2 hypoxia. Echo showed normal LV function without any regional wall motion abnormalities 3. Concern for metastatic CA as per CTA. CT abd/pelvis pending. Hemo/Onc consulted 4. Significant psych issues: bipolar/major depression 5. Chronic diastolic CHF 7. HLP: controlled Recommendations Given metastatic CA, would recommend conservative management. Palliative care consult pending. Supportive care. Will follow along peripherally. FRANCESCO CAVAZOS APRN Aug 09, 2017 10:59
[2017-08-09 11:00] VITALS: BP 115/65
--- NOTE | 2017-08-09 12:17 | PDOC ---
PROGRESS NOTES Chief Complaint Chief Complaint here for w/o metastatic disease, pain, hypoxic respiratory failure History of Present Illness History of Present Illness feels fine. wants his Diet Coke Vitals Vitals Vital Signs Date Time Temp Pulse Resp B/P (MAP) Pulse Ox O2 Delivery O2 Flow Rate FiO2 08/09/17 11:00 98.0 84 20 115/65 (82) 94 Nasal Cannula 5.0 98.0 Physical Exam Physical Exam hx learning disability, not a reliable historian Lungs: Clear (decreased breath sounds) Labs LABS EXAM: CT ANGIOGRAPHY OF THE CHEST WITH AND WITHOUT INTRAVENOUS CONTRAST. HISTORY: Respiratory distress. TECHNIQUE: Computed tomographic angiography of the chest was performed before and after the intravenous administration of 75 mL Omnipaque 300. 3-D maximum intensity projections were also performed. COMPARISON: None. FINDINGS: Images of the upper abdomen reveal extensive nodularity with thin and the omentum and peritoneal fat adjacent to the stomach. A hypoattenuating lesion in the left hepatic lobe measures 15 mm and is indeterminate. A moderate hiatal hernia contains mostly fat. Bone windows reveal there is an expansile lesion within the left anterior 8th rib concerning for metastasis. Extensive respiratory motion artifact limits sensitivity for small pulmonary emboli in the lung bases. None are seen. There is no aortic dissection or aneurysm. There are no pathologically enlarged mediastinal or axillary lymph nodes. There is no pleural or pericardial effusion. The heart is not enlarged. There are atherosclerotic calcifications of the coronary arteries. There is mild dependent atelectasis. IMPRESSION: 1. Peritoneal and omental metastatic disease, partially visualized. Correlate for known diagnosis. CT of the abdomen/pelvis could further evaluate if unclear. 2. Respiratory motion artifact limits sensitivity for small pulmonary emboli. Note is seen. Laboratory Tests Test 08/08/17 13:25 08/08/17 15:35 08/09/17 09:05 D-Dimer (Patricia) 5.86 ug/mlFEU (0.00-0.50) UR-Fnf-Q-Type Natriuretic Peptide 197 pg/mL (0-124) O2 Saturation 85 % (92-99) Arterial Blood pH 7.47 (7.35-7.45) Arterial Blood pCO2 at Patient Temp 50 mmHg (35-46) Arterial Blood pO2 at Patient Temp 49 mmHg (65-108) Arterial Blood HCO3 36 mmol/L (21-28) Arterial Blood Base Excess 11 mmol/L (-3-3) FiO2 36.0 Reticulocyte Count (auto) 1.9 % (0.5-2.5) Iron Level 13 ug/dL (65-175) Total Iron Binding Capacity 369 ug/dL (250-450) Iron Saturation 4 % (15-34) Ferritin 29 ng/mL (26-388) Vitamin B12 Level 1702 pg/mL (247-911) Serum Folate 2.45 ng/ml (3.2-20.0) Review of Systems Review of Systems hypercapnic respiratory failure extensive abdominal and peritoneal mets likely colon primary severe debility acute hypoxic respiratory failure plan gi consult oncology following, likely needs palliative care, not a candidate for chemo bipap with sleep comfort, pain control Assessment and Plan Assessmemt and Plan ASSESSMENT AND PLAN: 1. encephalopathy: metabolic, poss due to hypercapnia vs poss UTI (UA/culture gamez at [facility] on 08/07, results pending). appear resolved. 2. Hypercapnic respir failure: was on BiPAP last night, pH, pCO2 sl improved , but significantly hypoxic. suspect he may be at his baseline currently. c/ w hypercapnea 3. SARITHA, Hypoventilation syndrome in obesity: on CPAP at home, BiPAP here at night. CTA neg for PE 4. UTI: cult results pending. on empiric ceftriax 5. Troponin elevation: suspect demand mediated. echo results noted (chronic mild DD). appreciate cardiology input 6. Abn CT findings: on CTA today, had peritoneal and omental mets. obtain CT abd/pelvis; unk primary. H/O consult plan palliative care consult gi consult oncology following Problems: Comment Review of Relevant I have reviewed the following items donny (where applicable) has been applied. Labs Laboratory Tests Test 08/07/17 23:25 08/07/17 23:35 08/08/17 04:20 08/08/17 13:25 Troponin I Quantitative 0.141 ng/mL (0.000-0.055) 0.104 ng/mL (0.000-0.055) Nasal Screen MRSA (PCR) Negative (Negative) White Blood Count 7.6 x10^3/uL (4.0-11.0) Red Blood Count 3.83 x10^6/uL (4.30-5.70) Hemoglobin 10.1 g/dL (13.0-17.5) Hematocrit 31.5 % (39.0-53.0) Mean Corpuscular Volume 82 fL (79-100) Mean Corpuscular Hemoglobin 27 pg (25-35) Mean Corpuscular Hemoglobin Concent 32 g/dL (31-37) Red Cell Distribution Width 16.7 % (11.5-14.5) Platelet Count 221 x10^3/uL (140-400) Neutrophils (%) (Auto) 89 % (31-73) Lymphocytes (%) (Auto) 9 % (24-48) Monocytes (%) (Auto) 1 % (0-9) Eosinophils (%) (Auto) 0 % (0-3) Basophils (%) (Auto) 0 % (0-3) Neutrophils # (Auto) 6.8 x10^3uL (1.8-7.7) Lymphocytes # (Auto) 0.7 x10^3/uL (1.0-4.8) Monocytes # (Auto) 0.1 x10^3/uL (0.0-1.1) Eosinophils # (Auto) 0.0 x10^3/uL (0.0-0.7) Basophils # (Auto) 0.0 x10^3/uL (0.0-0.2) Segmented Neutrophils % 89 % (35-66) Band Neutrophils % 2 % (0-9) Lymphocytes % 7 % (24-48) Monocytes % 2 % (0-10) Platelet Estimate Adequate (ADEQUATE) Polychromasia Slight Anisocytosis Slight Sodium Level 134 mmol/L (136-145) Potassium Level 3.3 mmol/L (3.5-5.1) Chloride Level 92 mmol/L (98-107) Carbon Dioxide Level 41 mmol/L (21-32) Anion Gap 1 (6-14) Blood Urea Nitrogen 22 mg/dL (8-26) Creatinine 0.7 mg/dL (0.7-1.3) Estimated GFR (Cockcroft-Gault) 113.5 BUN/Creatinine Ratio 31 (6-20) Glucose Level 229 mg/dL (70-99) Hemoglobin A1c 6.1 % (4.8-5.6) Calcium Level 9.5 mg/dL (8.5-10.1) Magnesium Level 2.1 mg/dL (1.8-2.4) Total Bilirubin 0.3 mg/dL (0.2-1.0) Aspartate Amino Transf (AST/SGOT) 20 U/L (15-37) Alanine Aminotransferase (ALT/SGPT) 17 U/L (16-63) Alkaline Phosphatase 46 U/L (46-116) Total Protein 7.3 g/dL (6.4-8.2) Albumin 2.6 g/dL (3.4-5.0) Albumin/Globulin Ratio 0.6 (1.0-1.7) Triglycerides Level 47 mg/dL (0-150) Cholesterol Level 154 mg/dL (0-200) LDL Cholesterol, Calculated 94 mg/dL (0-100) VLDL Cholesterol, Calculated 9 mg/dL (0-40) Non-HDL Cholesterol Calculated 103 mg/dL (0-129) HDL Cholesterol 51 mg/dL (40-60) Cholesterol/HDL Ratio 3.0 Thyroid Stimulating Hormone (TSH) 0.500 uIU/mL (0.358-3.74) D-Dimer (Patricia) 5.86 ug/mlFEU (0.00-0.50) TY-Oui-P-Type Natriuretic Peptide 197 pg/mL (0-124) Test 08/08/17 15:35 08/09/17 09:05 O2 Saturation 85 % (92-99) Arterial Blood pH 7.47 (7.35-7.45) Arterial Blood pCO2 at Patient Temp 50 mmHg (35-46) Arterial Blood pO2 at Patient Temp 49 mmHg (65-108) Arterial Blood HCO3 36 mmol/L (21-28) Arterial Blood Base Excess 11 mmol/L (-3-3) FiO2 36.0 Reticulocyte Count (auto) 1.9 % (0.5-2.5) Iron Level 13 ug/dL (65-175) Total Iron Binding Capacity 369 ug/dL (250-450) Iron Saturation 4 % (15-34) Ferritin 29 ng/mL (26-388) Vitamin B12 Level 1702 pg/mL (247-911) Serum Folate 2.45 ng/ml (3.2-20.0) Laboratory Tests Test 08/08/17 13:25 08/08/17 15:35 08/09/17 09:05 D-Dimer (Patricia) 5.86 ug/mlFEU (0.00-0.50) RP-Fdb-Z-Type Natriuretic Peptide 197 pg/mL (0-124) O2 Saturation 85 % (92-99) Arterial Blood pH 7.47 (7.35-7.45) Arterial Blood pCO2 at Patient Temp 50 mmHg (35-46) Arterial Blood pO2 at Patient Temp 49 mmHg (65-108) Arterial Blood HCO3 36 mmol/L (21-28) Arterial Blood Base Excess 11 mmol/L (-3-3) FiO2 36.0 Reticulocyte Count (auto) 1.9 % (0.5-2.5) Iron Level 13 ug/dL (65-175) Total Iron Binding Capacity 369 ug/dL (250-450) Iron Saturation 4 % (15-34) Ferritin 29 ng/mL (26-388) Vitamin B12 Level 1702 pg/mL (247-911) Serum Folate 2.45 ng/ml (3.2-20.0) Medications Current Medications Potassium Chloride/Sodium Chloride 1,000 ml @ 100 mls/hr Q10H IV Last administered on 08/09/17 05:35; Start 08/07/17 at 23:00 Acetaminophen (Tylenol) 650 mg PRN Q6HRS PRN PO PAIN; Start 08/07/17 at 23:00 Ascorbic Acid (Vitamin C) 500 mg DAILY PO Last administered on 08/09/17 09:23 ; Start 08/08/17 at 09:00 Bisacodyl (Dulcolax Tab) 5 mg PRN 1X PRN PO CONSTIPATION; Start 08/07/17 at 23 :00 Bupropion HCl (Wellbutrin Sr) 300 mg DAILY PO Last administered on 08/09/17 09:22; Start 08/08/17 at 09:00 Buspirone HCl (Buspar) 5 mg QID PO Last administered on 08/09/17 09:24; Start 08/07/17 at 23:00 Cyanocobalamin (Vitamin B-12) 1,000 mcg DAILY PO Last administered on 09:23; Start 08/08/17 at 09:00 Divalproex Sodium (Depakote) 500 mg BID PO Last administered on 08/09/17 09: 23; Start 08/07/17 at 23:00 Docusate Sodium (Colace) 100 mg BID PO Last administered on 08/09/17 09:24; Start 08/08/17 at 09:00 Indapamide (Lozol) 2.5 mg QODAY PO Last administered on 08/09/17 09:23; Start 08/09/17 at 09:00 Magnesium Oxide (Magnesium Oxide) 400 mg TID PO Last administered on 09:24; Start 08/07/17 at 23:00 Mirtazapine (Remeron) 7.5 mg HS PO Last administered on 08/08/17 21:40; Start 08/07/17 at 23:00 Niacin (Slo-Niacin) 500 mg HS PO Last administered on 08/08/17 21:39; Start 08/07/17 at 23:00 Olanzapine (ZyPREXA) 2.5 mg PRN Q2HR PRN PO ANXIETY / AGITATION; Start at 23:00 Tamsulosin HCl (Flomax) 0.4 mg DAILY PO Last administered on 08/09/17 09:23; Start 08/08/17 at 09:00 Trazodone HCl (Desyrel) 100 mg PRN QHS PRN PO INSOMNIA; Start 08/07/17 at 23: 00 Ferrous Sulfate (Feosol) 325 mg DAILY PO Last administered on 08/09/17 09:23 ; Start 08/08/17 at 09:00 Fluvoxamine Maleate (Luvox) 75 mg QHS PO Last administered on 08/08/17 21:39 ; Start 08/07/17 at 23:00 Al Hydroxide/Mg Hydroxide (Mylanta Plus Xs) 30 ml PRN BID PRN PO DYSPEPSIA; Start 08/07/17 at 23:00 Magnesium Hydroxide (Milk Of Magnesia) 2,400 mg PRN DAILY PRN PO CONSTIPATION; Start 08/07/17 at 23:00 Nystatin (Nystop) 1 lizzette BID TP Last administered on 08/09/17 09:25; Start at 09:00 Nystatin (Mycostatin) 1 lizzette PRN Q8HRS PRN TP RASH; Start 08/07/17 at 23:00 Potassium Chloride (Klor-Con) 40 meq DAILY PO Last administered on 08/09/17 09:24; Start 08/08/17 at 09:00 Risperidone (RisperDAL) 2 mg BID PO Last administered on 08/09/17 09:24; Start 08/07/17 at 23:00 Non-Formulary Medication 325 ml PRN TP ; Start 08/07/17 at 23:00; Status UNV Methylprednisolone Sodium Succinate (SOLU-Medrol 40MG VIAL) 40 mg Q8HRS IV Last administered on 08/09/17 05:35; Start 08/08/17 at 00:00 Aspirin (Ecotrin) 81 mg DAILYWBKFT PO Last administered on 08/09/17 09:24; Start 08/09/17 at 08:00 Perflutren Protein Type A Microsphe (Optison) 0.66 mg 1X ONCE IV Last administered on 08/08/17 14:00; Start 08/08/17 at 14:00; Stop 08/08/17 at 14 :01; Status DC Perflutren Protein Type A Microsphe (Optison) 0.66 mg STK-MED ONCE IV ; Start 08/08/17 at 14:03; Stop 08/08/17 at 14:04; Status DC Iohexol (Omnipaque 300 Mg/ml) 75 ml 1X ONCE IV ; Start 08/08/17 at 15:15; Stop 08/08/17 at 15:16; Status DC Info (Do NOT chart on this entry -- for MONITORING) 1 each PRN DAILY PRN MC SEE COMMENTS; Start 08/08/17 at 15:15; Stop 08/10/17 at 15:14 Ceftriaxone Sodium 1 gm/ Dextrose 50 ml @ 100 mls/hr Q24H IV ; Start 08/08/17 at 18:15; Status UNV Ceftriaxone Sodium (Rocephin) 1 gm Q24H IVP Last administered on 08/08/17 21: 41; Start 08/08/17 at 20:00 Lactobacillus Rhamnosus (Culturelle) 1 cap BID PO Last administered on 09:21; Start 08/08/17 at 21:00 Iohexol (Omnipaque 300 Mg/ml) 75 ml 1X ONCE IV Last administered on 11:46; Start 08/09/17 at 08:45; Stop 08/09/17 at 08:46; Status DC Iohexol (Omnipaque 240 Mg/ml) 50 ml 1X ONCE PO Last administered on 11/21/ 17at 11:46; Start 08/09/17 at 08:45; Stop 08/09/17 at 08:46; Status DC Info (Do NOT chart on this entry -- for MONITORING) 1 each PRN DAILY PRN MC SEE COMMENTS; Start 08/09/17 at 08:45; Stop 08/11/17 at 08:44 Iohexol (Omnipaque 300 Mg/ml) 75 ml 1X ONCE IV ; Start 08/09/17 at 09:00; Stop 08/09/17 at 09:01; Status DC Info (Do NOT chart on this entry -- for MONITORING) 1 each PRN DAILY PRN MC SEE COMMENTS; Start 08/09/17 at 09:00; Stop 08/11/17 at 08:59 Folic Acid (Folic Acid) 1 mg DAILY PO ; Start 08/09/17 at 12:00 Active Scripts Active Reported Trazodone Hcl 100 Mg Tablet 100 Mg PO HS PRN Risperidone 2 Mg Tablet 2 Mg PO BID Fluvoxamine Maleate 50 Mg Tablet 75 Mg PO QHS Mirtazapine 7.5 Mg Tablet 7.5 Mg PO HS Milk Of Magnesia (Magnesium Hydroxide) 2,400 Mg/10 Ml Oral.susp 2,400 Mg PO PRN PRN Maalox Advanced Suspension (Mag Hydrox/Aluminum Hyd/Simeth) 355 Ml Oral.susp 355 Ml PO PRN BID PRN Ferrous Sulfate 325 Mg Tablet. 325 Mg PO DAILY Vitamin B-12 (Cyanocobalamin (Vitamin B-12)) 1,000 Mcg Tablet 1,000 Mcg PO DAILY Dulcolax (Bisacodyl) 5 Mg Tablet. 1 Tab PO PRN PRN Buspirone Hcl 5 Mg Tablet 5 Mg PO QID Divalproex Sodium 500 Mg Tablet. 500 Mg PO BID Indapamide 2.5 Mg Tablet 2.5 Mg PO QODAY Niaspan (Niacin) 500 Mg Tab.er.24h 500 Mg PO HS Dandruff 1% Shampoo (Selenium Sulfide/Aloe Vera) 325 Ml Shampoo 325 Ml TP PRN Potassium Chloride 20 Meq Tablet.er 40 Meq PO DAILY Nystatin 15 Gm Oint...g. 15 Gm TP PRN Q8HRS PRN Olanzapine 2.5 Mg Tablet 2.5 Mg PO PRN Q2HR PRN Bupropion Hcl Sr (Bupropion Hcl) 100 Mg Tablet.er 300 Mg PO DAILY Ascorbic Acid 500 Mg Tablet 500 Mg PO DAILY Tamsulosin Hcl 0.4 Mg Cap.er.24h 1 Cap PO DAILY Tylenol (Acetaminophen) 325 Mg Tablet 650 Mg PO PRN Q6HRS PRN Magnesium Oxide 400 Mg Tablet 400 Mg PO TID Nystatin 1 Each Powder.ea. 1 Each PO BID Colace (Docusate Sodium) 100 Mg Capsule 1 Cap PO BID Vitals/I & O Vital Sign - Last 24 Hours 08/08/17 08/08/17 08/08/17 08/08/17 15:08 19:20 20:00 23:00 Temp 97.8 97.7 97.8 97.7 Pulse 76 83 Resp 20 18 B/P (MAP) 126/72 (90) 114/65 (81) Pulse Ox 90 90 O2 Delivery Nasal Cannula Nasal Cannula Nasal Cannula O2 Flow Rate 5.0 5.0 5.0 08/08/17 08/08/17 08/09/17 08/09/17 23:20 23:25 03:30 07:00 Temp 97.5 97.9 99.0 97.5 97.9 99.0 Pulse 79 69 73 Resp 18 18 22 B/P (MAP) 119/61 (80) 119/60 (79) 124/68 (86) Pulse Ox 92 91 91 95 O2 Delivery Nasal Cannula BiPAP/CPAP BiPAP/CPAP O2 Flow Rate 5.0 08/09/17 08/09/17 08:00 11:00 Temp 98.0 98.0 Pulse 84 Resp 20 B/P (MAP) 115/65 (82) Pulse Ox 94 O2 Delivery Nasal Cannula Nasal Cannula O2 Flow Rate 5.0 5.0 Intake and Output 08/08/17 08/08/17 08/09/17 15:00 23:00 07:00 Intake Total 1100 ml 4000 ml 1720 ml Output Total 850 ml 3475 ml Balance 1100 ml 3150 ml -1755 ml DARWIN KWAN MD Aug 09, 2017 12:17
[2017-08-09] MEDS: FOLIC ACID 1 MG TABLET. PO SCH (13:24)
[2017-08-09 15:00] VITALS: BP 123/63
--- NOTE | 2017-08-09 16:46 | RAD ---
EXAM: CT abdomen/pelvis with contrast. HISTORY: Peritoneal/omental metastatic disease. TECHNIQUE: Computed tomography of the abdomen and pelvis was performed after the intravenous administration of 75 mL Omnipaque 300. COMPARISON: Yesterday's chest CT. FINDINGS: Lung windows through the visualized portions of the bases reveal mild dependent atelectasis and coronary atherosclerotic calcifications. The heart is mildly enlarged. Gynecomastia is at least moderate on the right. Bone windows reveal ] mass lesion of the left anterior 8th rib and. No clear additional lesions are seen.. The left anterior aspect of the abdominal wall is patulous and is displaced to the left. No discrete hernia is not seen. There is a moderate left inguinal hernia, also partially visualized. Contrast opacification is suboptimal. A mass is suspected at the tail of the pancreas measuring approximately 4.7 x 4.2 cm. This is contiguous with irregular nodular deposits along the greater curvature the stomach. Serosal deposits are favored over a primary gastric mass. There is extensive nodularity throughout the remainder consistent with metastatic disease. These are largest in the left upper quadrant were then measure up to 4.0 cm. There is a small amount of ascites in the left abdomen. A small hypoattenuating lesion in hepatic segment 3 measures 18 mm. This may be a cyst but is indeterminate. A gallstone is noted. The kidneys, spleen and adrenal glands are unremarkable. There are no pathologically enlarged lymph nodes. The bladder is decompressed by Colindres catheter but appears patulous and extends into the left midabdomen. There is diffuse bladder wall thickening. The left distal ureter is also mildly to moderately dilated. The rectum is distended to 9 cm. IMPRESSION: 1. The primary mass is suspected to be at the pancreatic tail. There is also wall thickening along the gastric greater curvature, but this may be from serosal deposits. Correlate with CA-19-9 levels. 2. Extensive omental metastatic disease. Small ascites. 3. The bladder it is decompressed but patulous and demonstrates severe wall thickening with a Colindres catheter in place correlate with urinalysis. 4. Correlate for fecal impaction. 5. Indeterminate 18 mm lesion in hepatic segment 3. 6. An expansile lesion in the left anterior 8th rib is indeterminate but also concerning for metastatic disease in the setting. 7. Cholelithiasis. 8. Moderate left inguinal hernia. *One or more of the following individualized dose reduction techniques were utilized for this examination: 1. Automated exposure control. 2. Adjustment of the mA and/or kV according to patient size. 3. Use of iterative reconstruction technique.
[2017-08-09 19:30] VITALS: BP 115/55
[2017-08-09] MEDS: cefTRIAXone IV Push 1 GM VIAL. IVP SCH (21:21)
[2017-08-09] MEDS: MIRTAZAPINE 7.5 MG TABLET. PO SCH (21:23)
[2017-08-09] MEDS: NIACIN ER 500 MG TABLET.ER PO SCH (21:23)
[2017-08-09 23:30] VITALS: BP 112/61
[2017-08-10] MEDS: POTASSIUM CL 20MEQ-0.45% NACL 1,000 ML IV SCH ×2 (03:10→11:00)
[2017-08-10 03:30] VITALS: BP 112/64
[2017-08-10] MEDS: methylPREDNISolone SOD SUCC PF 40 MG/ML VIAL. IV SCH (06:19)
[2017-08-10 07:00] VITALS: BP 120/70
[2017-08-10] MEDS: NYSTATIN TOPICAL POWDER 15GM BOTTLE. TP SCH (09:00)
--- NOTE | 2017-08-10 09:26 | PDOC ---
PROGRESS NOTES Chief Complaint Chief Complaint here for w/o metastatic disease, pain, hypoxic respiratory failure History of Present Illness History of Present Illness demanding to go home Vitals Vitals Vital Signs Date Time Temp Pulse Resp B/P (MAP) Pulse Ox O2 Delivery O2 Flow Rate FiO2 08/10/17 07:00 98.4 74 20 120/70 (87) 96 BiPAP/CPAP 98.4 08/09/17 20:00 5.0 Physical Exam Physical Exam hx learning disability, not a reliable historian General: mild distress Heart: Regular rate Lungs: Clear (decreased breath sounds) Abdomen: Soft Assessment and Plan Assessmemt and Plan ASSESSMENT AND PLAN: 1. encephalopathy: metabolic, poss due to hypercapnia vs poss UTI (UA/culture game[facility] at [facility] on 08/07, results pending). appear resolved. 2. Hypercapnic respir failure: BiPAP pH, pCO2 sl improved , but significantly hypoxic. suspect he may be at his baseline currently. c/w hypercapnea 3. SARITHA, Hypoventilation syndrome in obesity: on CPAP at home, BiPAP here at night. CTA neg for PE 4. UTI: cult results pending. on empiric ceftriax 5. Troponin elevation: suspect demand mediated. echo results noted (chronic mild DD). appreciate cardiology input 6. Abn CT findings: on CTA today, had peritoneal and omental mets. obtain CT abd/pelvis; unk primary. H/O consult plan palliative care consult pending, needs patient advocate , palliate care team meeting pending gi consult oncology following Problems: d/c once hospice arranged Problems: Comment Review of Relevant I have reviewed the following items donny (where applicable) has been applied. Labs Laboratory Tests Test 08/08/17 13:25 08/08/17 15:35 08/09/17 09:05 D-Dimer (Patricia) 5.86 ug/mlFEU (0.00-0.50) WP-[id number]-[id number]-Type Natriuretic Peptide 197 pg/mL (0-124) O2 Saturation 85 % (92-99) Arterial Blood pH 7.47 (7.35-7.45) Arterial Blood pCO2 at Patient Temp 50 mmHg (35-46) Arterial Blood pO2 at Patient Temp 49 mmHg (65-108) Arterial Blood HCO3 36 mmol/L (21-28) Arterial Blood Base Excess 11 mmol/L (-3-3) FiO2 36.0 Reticulocyte Count (auto) 1.9 % (0.5-2.5) Iron Level 13 ug/dL (65-175) Total Iron Binding Capacity 369 ug/dL (250-450) Iron Saturation 4 % (15-34) Ferritin 29 ng/mL (26-388) Vitamin B12 Level 1702 pg/mL (247-911) Serum Folate 2.45 ng/ml (3.2-20.0) Medications Current Medications Potassium Chloride/Sodium Chloride 1,000 ml @ 100 mls/hr Q10H IV Last administered on 08/10/17 03:10; Start 08/07/17 at 23:00 Acetaminophen (Tylenol) 650 mg PRN Q6HRS PRN PO PAIN; Start 08/07/17 at 23:00 Ascorbic Acid (Vitamin C) 500 mg DAILY PO Last administered on 08/09/17 09:23 ; Start 08/08/17 at 09:00 Bisacodyl (Dulcolax Tab) 5 mg PRN 1X PRN PO CONSTIPATION; Start 08/07/17 at 23 :00 Bupropion HCl (Wellbutrin Sr) 300 mg DAILY PO Last administered on 08/09/17 09:22; Start 08/08/17 at 09:00 Buspirone HCl (Buspar) 5 mg QID PO Last administered on 08/09/17 21:23; Start 08/07/17 at 23:00 Cyanocobalamin (Vitamin B-12) 1,000 mcg DAILY PO Last administered on 09:23; Start 08/08/17 at 09:00 Divalproex Sodium (Depakote) 500 mg BID PO Last administered on 08/09/17 21: 23; Start 08/07/17 at 23:00 Docusate Sodium (Colace) 100 mg BID PO Last administered on 08/09/17 21:23; Start 08/08/17 at 09:00 Indapamide (Lozol) 2.5 mg QODAY PO Last administered on 08/09/17 09:23; Start 08/09/17 at 09:00 Magnesium Oxide (Magnesium Oxide) 400 mg TID PO Last administered on 21:23; Start 08/07/17 at 23:00 Mirtazapine (Remeron) 7.5 mg HS PO Last administered on 08/09/17 21:23; Start 08/07/17 at 23:00 Niacin (Slo-Niacin) 500 mg HS PO Last administered on 08/09/17 21:23; Start 08/07/17 at 23:00 Olanzapine (ZyPREXA) 2.5 mg PRN Q2HR PRN PO ANXIETY / AGITATION; Start at 23:00 Tamsulosin HCl (Flomax) 0.4 mg DAILY PO Last administered on 08/09/17 09:23; Start 08/08/17 at 09:00 Trazodone HCl (Desyrel) 100 mg PRN QHS PRN PO INSOMNIA; Start 08/07/17 at 23: 00 Ferrous Sulfate (Feosol) 325 mg DAILY PO Last administered on 08/09/17 09:23 ; Start 08/08/17 at 09:00 Fluvoxamine Maleate (Luvox) 75 mg QHS PO Last administered on 08/09/17 21:23 ; Start 08/07/17 at 23:00 Al Hydroxide/Mg Hydroxide (Mylanta Plus Xs) 30 ml PRN BID PRN PO DYSPEPSIA; Start 08/07/17 at 23:00 Magnesium Hydroxide (Milk Of Magnesia) 2,400 mg PRN DAILY PRN PO CONSTIPATION Last administered on 08/09/17 21:21; Start 08/07/17 at 23:00 Nystatin (Nystop) 1 lizzette BID TP Last administered on 08/09/17 21:28; Start at 09:00 Nystatin (Mycostatin) 1 lizzette PRN Q8HRS PRN TP RASH; Start 08/07/17 at 23:00 Potassium Chloride (Klor-Con) 40 meq DAILY PO Last administered on 08/09/17 09:24; Start 08/08/17 at 09:00 Risperidone (RisperDAL) 2 mg BID PO Last administered on 08/09/17 21:23; Start 08/07/17 at 23:00 Non-Formulary Medication 325 ml PRN TP ; Start 08/07/17 at 23:00; Status UNV Methylprednisolone Sodium Succinate (SOLU-Medrol 40MG VIAL) 40 mg Q8HRS IV Last administered on 11/22/17at 06:19; Start 08/08/17 at 00:00 Aspirin (Ecotrin) 81 mg DAILYWBKFT PO Last administered on 08/09/17 09:24; Start 08/09/17 at 08:00 Perflutren Protein Type A Microsphe (Optison) 0.66 mg 1X ONCE IV Last administered on 08/08/17 14:00; Start 08/08/17 at 14:00; Stop 08/08/17 at 14 :01; Status DC Perflutren Protein Type A Microsphe (Optison) 0.66 mg STK-MED ONCE IV ; Start 08/08/17 at 14:03; Stop 08/08/17 at 14:04; Status DC Iohexol (Omnipaque 300 Mg/ml) 75 ml 1X ONCE IV ; Start 08/08/17 at 15:15; Stop 08/08/17 at 15:16; Status DC Info (Do NOT chart on this entry -- for MONITORING) 1 each PRN DAILY PRN MC SEE COMMENTS; Start 08/08/17 at 15:15; Stop 08/09/17 at 17:29; Status DC Ceftriaxone Sodium 1 gm/ Dextrose 50 ml @ 100 mls/hr Q24H IV ; Start 08/08/17 at 18:15; Status UNV Ceftriaxone Sodium (Rocephin) 1 gm Q24H IVP Last administered on 08/09/17 21: 21; Start 08/08/17 at 20:00 Lactobacillus Rhamnosus (Culturelle) 1 cap BID PO Last administered on 21:23; Start 08/08/17 at 21:00 Iohexol (Omnipaque 300 Mg/ml) 75 ml 1X ONCE IV Last administered on 11:46; Start 08/09/17 at 08:45; Stop 08/09/17 at 08:46; Status DC Iohexol (Omnipaque 240 Mg/ml) 50 ml 1X ONCE PO Last administered on 11:46; Start 08/09/17 at 08:45; Stop 08/09/17 at 08:46; Status DC Info (Do NOT chart on this entry -- for MONITORING) 1 each PRN DAILY PRN MC SEE COMMENTS; Start 08/09/17 at 08:45; Stop 08/09/17 at 17:29; Status DC Iohexol (Omnipaque 300 Mg/ml) 75 ml 1X ONCE IV ; Start 08/09/17 at 09:00; Stop 08/09/17 at 09:01; Status DC Info (Do NOT chart on this entry -- for MONITORING) 1 each PRN DAILY PRN MC SEE COMMENTS; Start 08/09/17 at 09:00; Stop 08/11/17 at 08:59 Folic Acid (Folic Acid) 1 mg DAILY PO Last administered on 08/09/17t 13:24; Start 08/09/17 at 12:00 Active Scripts Active Reported Trazodone Hcl 100 Mg Tablet 100 Mg PO HS PRN Risperidone 2 Mg Tablet 2 Mg PO BID Fluvoxamine Maleate 50 Mg Tablet 75 Mg PO QHS Mirtazapine 7.5 Mg Tablet 7.5 Mg PO HS Milk Of Magnesia (Magnesium Hydroxide) 2,400 Mg/10 Ml Oral.susp 2,400 Mg PO PRN PRN Maalox Advanced Suspension (Mag Hydrox/Aluminum Hyd/Simeth) 355 Ml Oral.susp 355 Ml PO PRN BID PRN Ferrous Sulfate 325 Mg Tablet. 325 Mg PO DAILY Vitamin B-12 (Cyanocobalamin (Vitamin B-12)) 1,000 Mcg Tablet 1,000 Mcg PO DAILY Dulcolax (Bisacodyl) 5 Mg Tablet. 1 Tab PO PRN PRN Buspirone Hcl 5 Mg Tablet 5 Mg PO QID Divalproex Sodium 500 Mg Tablet. 500 Mg PO BID Indapamide 2.5 Mg Tablet 2.5 Mg PO QODAY Niaspan (Niacin) 500 Mg Tab.er.24h 500 Mg PO HS Dandruff 1% Shampoo (Selenium Sulfide/Aloe Vera) 325 Ml Shampoo 325 Ml TP PRN Potassium Chloride 20 Meq Tablet.er 40 Meq PO DAILY Nystatin 15 Gm Oint...g. 15 Gm TP PRN Q8HRS PRN Olanzapine 2.5 Mg Tablet 2.5 Mg PO PRN Q2HR PRN Bupropion Hcl Sr (Bupropion Hcl) 100 Mg Tablet.er 300 Mg PO DAILY Ascorbic Acid 500 Mg Tablet 500 Mg PO DAILY Tamsulosin Hcl 0.4 Mg Cap.er.24h 1 Cap PO DAILY Tylenol (Acetaminophen) 325 Mg Tablet 650 Mg PO PRN Q6HRS PRN Magnesium Oxide 400 Mg Tablet 400 Mg PO TID Nystatin 1 Each Powder.ea. 1 Each PO BID Colace (Docusate Sodium) 100 Mg Capsule 1 Cap PO BID Vitals/I & O Vital Sign - Last 24 Hours 08/09/17 08/09/17 08/09/17 08/09/17 11:00 15:00 19:30 20:00 Temp 98.0 97.8 97.9 98.0 97.8 97.9 Pulse 84 80 83 Resp 20 20 16 B/P (MAP) 115/65 (82) 123/63 (83) 115/55 (75) Pulse Ox 94 94 93 O2 Delivery Nasal Cannula Nasal Cannula Nasal Cannula Nasal Cannula O2 Flow Rate 5.0 5.0 5.0 5.0 08/09/17 08/10/17 08/10/17 08/10/17 23:30 01:45 03:30 03:31 Temp 97.6 97.7 97.6 97.7 Pulse 72 84 Resp 18 20 B/P (MAP) 112/61 (78) 112/64 (80) Pulse Ox 94 90 O2 Delivery BiPAP/CPAP BiPAP/CPAP BiPAP/CPAP BiPAP/CPAP 08/10/17 07:00 Temp 98.4 98.4 Pulse 74 Resp 20 B/P (MAP) 120/70 (87) Pulse Ox 96 O2 Delivery BiPAP/CPAP Intake and Output 08/09/17 08/09/17 08/10/17 15:00 23:00 07:00 Intake Total 1980 ml 3200 ml Output Total 5650 ml 4550 ml Balance -3670 ml -1350 ml Images EXAM: CT abdomen/pelvis with contrast. HISTORY: Peritoneal/omental metastatic disease. TECHNIQUE: Computed tomography of the abdomen and pelvis was performed after the intravenous administration of 75 mL Omnipaque 300. COMPARISON: Yesterday's chest CT. FINDINGS: Lung windows through the visualized portions of the bases reveal mild dependent atelectasis and coronary atherosclerotic calcifications. The heart is mildly enlarged. Gynecomastia is at least moderate on the right. Bone windows reveal ] mass lesion of the left anterior 8th rib and. No clear additional lesions are seen.. The left anterior aspect of the abdominal wall is patulous and is displaced to the left. No discrete hernia is not seen. There is a moderate left inguinal hernia, also partially visualized. Contrast opacification is suboptimal. A mass is suspected at the tail of the pancreas measuring approximately 4.7 x 4.2 cm. This is contiguous with irregular nodular deposits along the greater curvature the stomach. Serosal deposits are favored over a primary gastric mass. There is extensive nodularity throughout the remainder consistent with metastatic disease. These are largest in the left upper quadrant were then measure up to 4.0 cm. There is a small amount of ascites in the left abdomen. A small hypoattenuating lesion in hepatic segment 3 measures 18 mm. This may be a cyst but is indeterminate. A gallstone is noted. The kidneys, spleen and adrenal glands are unremarkable. There are no pathologically enlarged lymph nodes. The bladder is decompressed by Colindres catheter but appears patulous and extends into the left midabdomen. There is diffuse bladder wall thickening. The left distal ureter is also mildly to moderately dilated. The rectum is distended to 9 cm. IMPRESSION: 1. The primary mass is suspected to be at the pancreatic tail. There is also wall thickening along the gastric greater curvature, but this may be from serosal deposits. Correlate with CA-19-9 levels. 2. Extensive omental metastatic disease. Small ascites. 3. The bladder it is decompressed but patulous and demonstrates severe wall thickening with a Colindres catheter in place correlate with urinalysis. 4. Correlate for fecal impaction. 5. Indeterminate 18 mm lesion in hepatic segment 3. 6. An expansile lesion in the left anterior 8th rib is indeterminate but also concerning for metastatic disease in the setting. 7. Cholelithiasis. 8. Moderate left inguinal hernia. DARWIN KWAN MD Aug 10, 2017 09:26
[2017-08-10] MEDS ORDERED: MORPHINE SULFATE 20 MG/ML CONC SOLUTION. SL PRN (09:45)
[2017-08-10] MEDS: LACTOBACILLUS RHAMNOSUS GG 1 CAPSULE. PO SCH (10:15)
[2017-08-10] MEDS: risperiDONE 1 MG TABLET. PO SCH (10:16)
[2017-08-10] MEDS: POTASSIUM CHLORIDE 20 MEQ TABLET.ER. PO SCH (10:16)
[2017-08-10] MEDS: buPROPion SR 100 MG TABLET.SA. PO SCH (10:16)
[2017-08-10] MEDS: ASPIRIN ENTERIC COATED 81 MG TABLET.DR. PO SCH (10:17)
[2017-08-10] MEDS: TAMSULOSIN 0.4 MG CAP.ER.24H. PO SCH (10:17)
[2017-08-10] MEDS: FERROUS SULFATE 325 MG TABLET. PO SCH (10:17)
[2017-08-10] MEDS: MAGNESIUM OXIDE 400 MG TABLET PO SCH (10:17)
[2017-08-10] MEDS: DIVALPROEX DELAYED RELEASE 500 MG TABLET.DR. PO SCH (10:17)
[2017-08-10] MEDS: DOCUSATE SODIUM 100 MG CAPSULE. PO SCH (10:17)
[2017-08-10] MEDS: ASCORBIC ACID 500 MG TABLET PO SCH (10:17)
[2017-08-10] MEDS: FOLIC ACID 1 MG TABLET. PO SCH (10:17)
[2017-08-10] MEDS: CYANOCOBALAMIN (VITAMIN B-12) 1,000 MCG TABLET. PO SCH (10:17)
[2017-08-10] MEDS: busPIRone 5 MG TABLET. PO SCH (10:25)
[2017-08-10 11:00] VITALS: BP 115/62
--- NOTE | 2017-08-10 11:08 | PDOC ---
Subjective: Subjective: "I'm ready to go." Objective: Vital Signs: Vital Signs Date Time Temp Pulse Resp B/P (MAP) Pulse Ox O2 Delivery O2 Flow Rate FiO2 08/10/17 08:00 Nasal Cannula 5.0 08/10/17 07:00 98.4 74 20 120/70 (87) 96 98.4 Imaging: CT A/P IMPRESSION: 1. The primary mass is suspected to be at the pancreatic tail. There is also wall thickening along the gastric greater curvature, but this may be from serosal deposits. Correlate with CA-19-9 levels. 2. Extensive omental metastatic disease. Small ascites. 3. The bladder it is decompressed but patulous and demonstrates severe wall thickening with a Colindres catheter in place correlate with urinalysis. 4. Correlate for fecal impaction. 5. Indeterminate 18 mm lesion in hepatic segment 3. 6. An expansile lesion in the left anterior 8th rib is indeterminate but also concerning for metastatic disease in the setting. 7. Cholelithiasis. 8. Moderate left inguinal hernia. PE: GEN: NAD, up to chair ABD: obese, soft, non-tender NEURO/PSYCH: awake/alert A/P: Metastatic cancer, pancreas primary suspected -- D/w PC earlier, discussion w/ DPOA planned today. RN called later - to DC today w/ Hospice. ROSA PARMAR Aug 10, 2017 11:08
--- NOTE | 2017-08-10 11:19 | PDOC ---
PROGRESS NOTES Subjective Subjective HPI - Pancreatic cancer (clinical diagnosis) with peritoneal and omental metastatic disease noted on CT angiogram of the chest performed on 08/08/[address] abd/pelvis 08/08/17. ROS - dyspnea better Objective Objective Vital Signs Date Time Temp Pulse Resp B/P (MAP) Pulse Ox O2 Delivery O2 Flow Rate FiO2 08/10/17 11:00 97.6 80 20 115/62 (79) 93 BiPAP/CPAP 97.6 08/10/17 08:00 5.0 Intake and Output 08/10/17 06:59 Intake Total 5180 ml Output Total 36642 ml Balance -5020 ml Intake Oral 4450 ml IV Total 730 ml Output Urine Total 75388 ml Physical Exam Heart: Normal S1, Normal S2 General: Alert, No acute distress Lungs: Clear to auscultation Assessment Assessment IMPRESSION AND PLAN: 1. Pancreatic cancer (clinical diagnosis) with peritoneal and omental metastatic disease noted on CT angiogram of the chest performed on 08/08/[address] abd/pelvis 08/08/17. His functional status is poor and I agree to pursue with hospice. Bx not necessary as no treatments planned. I discussed with Palliative Care team. I also discussed with the registered nurse. 2. Dyspnea. Appreciate pulmonary consultation. He has acute on chronic hypoxemic hypercapnic respiratory failure. Continue management per Pulmonary Medicine. Comment Review of Relevant I have reviewed the following items donny (where applicable) has been applied. Labs Laboratory Tests Test 08/08/17 13:25 08/08/17 15:35 08/09/17 09:05 D-Dimer (Patricia) 5.86 ug/mlFEU (0.00-0.50) ZV-Ikh-I-Type Natriuretic Peptide 197 pg/mL (0-124) O2 Saturation 85 % (92-99) Arterial Blood pH 7.47 (7.35-7.45) Arterial Blood pCO2 at Patient Temp 50 mmHg (35-46) Arterial Blood pO2 at Patient Temp 49 mmHg (65-108) Arterial Blood HCO3 36 mmol/L (21-28) Arterial Blood Base Excess 11 mmol/L (-3-3) FiO2 36.0 Reticulocyte Count (auto) 1.9 % (0.5-2.5) Iron Level 13 ug/dL (65-175) Total Iron Binding Capacity 369 ug/dL (250-450) Iron Saturation 4 % (15-34) Ferritin 29 ng/mL (26-388) Vitamin B12 Level 1702 pg/mL (247-911) Serum Folate 2.45 ng/ml (3.2-20.0) Medications Current Medications Potassium Chloride/Sodium Chloride 1,000 ml @ 100 mls/hr Q10H IV Last administered on 08/10/17 03:10; Start 08/07/17 at 23:00 Acetaminophen (Tylenol) 650 mg PRN Q6HRS PRN PO PAIN; Start 08/07/17 at 23:00 Ascorbic Acid (Vitamin C) 500 mg DAILY PO Last administered on 08/10/17 10:17 ; Start 08/08/17 at 09:00 Bisacodyl (Dulcolax Tab) 5 mg PRN 1X PRN PO CONSTIPATION; Start 08/07/17 at 23 :00 Bupropion HCl (Wellbutrin Sr) 300 mg DAILY PO Last administered on 08/10/17 10:16; Start 08/08/17 at 09:00 Buspirone HCl (Buspar) 5 mg QID PO Last administered on 08/10/17 10:25; Start 08/07/17 at 23:00 Cyanocobalamin (Vitamin B-12) 1,000 mcg DAILY PO Last administered on 10:17; Start 08/08/17 at 09:00 Divalproex Sodium (Depakote) 500 mg BID PO Last administered on 08/10/17 10: 17; Start 08/07/17 at 23:00 Docusate Sodium (Colace) 100 mg BID PO Last administered on 08/10/17 10:17; Start 08/08/17 at 09:00 Indapamide (Lozol) 2.5 mg QODAY PO Last administered on 08/09/17 09:23; Start 08/09/17 at 09:00 Magnesium Oxide (Magnesium Oxide) 400 mg TID PO Last administered on 10:17; Start 08/07/17 at 23:00 Mirtazapine (Remeron) 7.5 mg HS PO Last administered on 08/09/17 21:23; Start 08/07/17 at 23:00 Niacin (Slo-Niacin) 500 mg HS PO Last administered on 08/09/17 21:23; Start 08/07/17 at 23:00 Olanzapine (ZyPREXA) 2.5 mg PRN Q2HR PRN PO ANXIETY / AGITATION; Start at 23:00 Tamsulosin HCl (Flomax) 0.4 mg DAILY PO Last administered on 08/10/17 10:17; Start 08/08/17 at 09:00 Trazodone HCl (Desyrel) 100 mg PRN QHS PRN PO INSOMNIA; Start 08/07/17 at 23: 00 Ferrous Sulfate (Feosol) 325 mg DAILY PO Last administered on 08/10/17 10:17 ; Start 08/08/17 at 09:00 Fluvoxamine Maleate (Luvox) 75 mg QHS PO Last administered on 08/09/17 21:23 ; Start 08/07/17 at 23:00 Al Hydroxide/Mg Hydroxide (Mylanta Plus Xs) 30 ml PRN BID PRN PO DYSPEPSIA; Start 08/07/17 at 23:00 Magnesium Hydroxide (Milk Of Magnesia) 2,400 mg PRN DAILY PRN PO CONSTIPATION Last administered on 08/09/17 21:21; Start 08/07/17 at 23:00 Nystatin (Nystop) 1 lizzette BID TP Last administered on 08/10/17 09:00; Start at 09:00 Nystatin (Mycostatin) 1 lizzette PRN Q8HRS PRN TP RASH; Start 08/07/17 at 23:00 Potassium Chloride (Klor-Con) 40 meq DAILY PO Last administered on 08/10/17 10:16; Start 08/08/17 at 09:00 Risperidone (RisperDAL) 2 mg BID PO Last administered on 08/10/17 10:16; Start 08/07/17 at 23:00 Non-Formulary Medication 325 ml PRN TP ; Start 08/07/17 at 23:00; Status UNV Methylprednisolone Sodium Succinate (SOLU-Medrol 40MG VIAL) 40 mg Q8HRS IV Last administered on 08/10/17 06:19; Start 08/08/17 at 00:00 Aspirin (Ecotrin) 81 mg DAILYWBKFT PO Last administered on 08/10/17 10:17; Start 08/09/17 at 08:00 Perflutren Protein Type A Microsphe (Optison) 0.66 mg 1X ONCE IV Last administered on 08/08/17 14:00; Start 08/08/17 at 14:00; Stop 08/08/17 at 14 :01; Status DC Perflutren Protein Type A Microsphe (Optison) 0.66 mg STK-MED ONCE IV ; Start 08/08/17 at 14:03; Stop 08/08/17 at 14:04; Status DC Iohexol (Omnipaque 300 Mg/ml) 75 ml 1X ONCE IV ; Start 08/08/17 at 15:15; Stop 08/08/17 at 15:16; Status DC Info (Do NOT chart on this entry -- for MONITORING) 1 each PRN DAILY PRN MC SEE COMMENTS; Start 08/08/17 at 15:15; Stop 08/09/17 at 17:29; Status DC Ceftriaxone Sodium 1 gm/ Dextrose 50 ml @ 100 mls/hr Q24H IV ; Start 08/08/17 at 18:15; Status UNV Ceftriaxone Sodium (Rocephin) 1 gm Q24H IVP Last administered on 08/09/17 21: 21; Start 08/08/17 at 20:00 Lactobacillus Rhamnosus (Culturelle) 1 cap BID PO Last administered on 10:15; Start 08/08/17 at 21:00 Iohexol (Omnipaque 300 Mg/ml) 75 ml 1X ONCE IV Last administered on 11:46; Start 08/09/17 at 08:45; Stop 08/09/17 at 08:46; Status DC Iohexol (Omnipaque 240 Mg/ml) 50 ml 1X ONCE PO Last administered on 11:46; Start 08/09/17 at 08:45; Stop 08/09/17 at 08:46; Status DC Info (Do NOT chart on this entry -- for MONITORING) 1 each PRN DAILY PRN MC SEE COMMENTS; Start 08/09/17 at 08:45; Stop 08/09/17 at 17:29; Status DC Iohexol (Omnipaque 300 Mg/ml) 75 ml 1X ONCE IV ; Start 08/09/17 at 09:00; Stop 08/09/17 at 09:01; Status DC Info (Do NOT chart on this entry -- for MONITORING) 1 each PRN DAILY PRN MC SEE COMMENTS; Start 08/09/17 at 09:00; Stop 08/11/17 at 08:59 Folic Acid (Folic Acid) 1 mg DAILY PO Last administered on 08/10/17t 10:17; Start 08/09/17 at 12:00 Morphine Sulfate (Roxanol Conc) 10 mg PRN Q3HRS PRN SL PAIN; Start 08/10/17 at 09:45; Stop 08/13/17 at 09:44 Active Scripts Active Reported Trazodone Hcl 100 Mg Tablet 100 Mg PO HS PRN Risperidone 2 Mg Tablet 2 Mg PO BID Fluvoxamine Maleate 50 Mg Tablet 75 Mg PO QHS Mirtazapine 7.5 Mg Tablet 7.5 Mg PO HS Milk Of Magnesia (Magnesium Hydroxide) 2,400 Mg/10 Ml Oral.susp 2,400 Mg PO PRN PRN Maalox Advanced Suspension (Mag Hydrox/Aluminum Hyd/Simeth) 355 Ml Oral.susp 355 Ml PO PRN BID PRN Ferrous Sulfate 325 Mg Tablet. 325 Mg PO DAILY Vitamin B-12 (Cyanocobalamin (Vitamin B-12)) 1,000 Mcg Tablet 1,000 Mcg PO DAILY Dulcolax (Bisacodyl) 5 Mg Tablet. 1 Tab PO PRN PRN Buspirone Hcl 5 Mg Tablet 5 Mg PO QID Divalproex Sodium 500 Mg Tablet. 500 Mg PO BID Indapamide 2.5 Mg Tablet 2.5 Mg PO QODAY Niaspan (Niacin) 500 Mg Tab.er.24h 500 Mg PO HS Dandruff 1% Shampoo (Selenium Sulfide/Aloe Vera) 325 Ml Shampoo 325 Ml TP PRN Potassium Chloride 20 Meq Tablet.er 40 Meq PO DAILY Nystatin 15 Gm Oint...g. 15 Gm TP PRN Q8HRS PRN Olanzapine 2.5 Mg Tablet 2.5 Mg PO PRN Q2HR PRN Bupropion Hcl Sr (Bupropion Hcl) 100 Mg Tablet.er 300 Mg PO DAILY Ascorbic Acid 500 Mg Tablet 500 Mg PO DAILY Tamsulosin Hcl 0.4 Mg Cap.er.24h 1 Cap PO DAILY Tylenol (Acetaminophen) 325 Mg Tablet 650 Mg PO PRN Q6HRS PRN Magnesium Oxide 400 Mg Tablet 400 Mg PO TID Nystatin 1 Each Powder.ea. 1 Each PO BID Colace (Docusate Sodium) 100 Mg Capsule 1 Cap PO BID Vitals/I & O Vital Sign - Last 24 Hours 08/09/17 08/09/17 08/09/17 08/09/17 15:00 19:30 20:00 23:30 Temp 97.8 97.9 97.6 97.8 97.9 97.6 Pulse 80 83 72 Resp 20 16 18 B/P (MAP) 123/63 (83) 115/55 (75) 112/61 (78) Pulse Ox 94 93 94 O2 Delivery Nasal Cannula Nasal Cannula Nasal Cannula BiPAP/CPAP O2 Flow Rate 5.0 5.0 5.0 08/10/17 08/10/17 08/10/17 08/10/17 01:45 03:30 03:31 07:00 Temp 97.7 98.4 97.7 98.4 Pulse 84 74 Resp 20 20 B/P (MAP) 112/64 (80) 120/70 (87) Pulse Ox 90 96 O2 Delivery BiPAP/CPAP BiPAP/CPAP BiPAP/CPAP BiPAP/CPAP 08/10/17 08/10/17 08:00 11:00 Temp 97.6 97.6 Pulse 80 Resp 20 B/P (MAP) 115/62 (79) Pulse Ox 93 O2 Delivery Nasal Cannula BiPAP/CPAP O2 Flow Rate 5.0 Intake and Output 08/09/17 08/09/17 08/10/17 14:59 22:59 06:59 Intake Total 1980 ml 3200 ml Output Total 5650 ml 4550 ml Balance -3670 ml -1350 ml GABY SCHRADER MD Aug 10, 2017 11:19
--- NOTE | 2017-08-10 16:21 | PDOC ---
PULMONARY PROGRESS NOTES Subjective PT WANTS TO GO HOME Vitals Vital Signs Date Time Temp Pulse Resp B/P (MAP) Pulse Ox O2 Delivery O2 Flow Rate FiO2 08/10/17 11:00 97.6 80 20 115/62 (79) 93 BiPAP/CPAP 97.6 08/10/17 08:00 5.0 Lungs: Clear (decreased breath sounds) Cardiovascular: S1, S2 Abdomen: Soft Neuro Exam: Alert Extremities: Other (EDEMA) Skin: Warm Labs Laboratory Tests Test 08/09/17 09:05 Reticulocyte Count (auto) 1.9 % (0.5-2.5) Iron Level 13 ug/dL (65-175) Total Iron Binding Capacity 369 ug/dL (250-450) Iron Saturation 4 % (15-34) Ferritin 29 ng/mL (26-388) Vitamin B12 Level 1702 pg/mL (247-911) Serum Folate 2.45 ng/ml (3.2-20.0) Medications Active Scripts Medications Dose Route/Sig Max Daily Dose Days Date Category Trazodone Hcl 100 Mg Tablet 100 Mg PO HS PRN 08/07/17 Reported Risperidone 2 Mg Tablet 2 Mg PO BID 08/07/17 Reported Fluvoxamine Maleate 50 Mg Tablet 75 Mg PO QHS 08/07/17 Reported Mirtazapine 7.5 Mg Tablet 7.5 Mg PO HS 08/07/17 Reported Milk Of Magnesia (Magnesium Hydroxide) 2,400 Mg/10 Ml Oral.susp 2,400 Mg PO PRN PRN 08/07/17 Reported Maalox Advanced Suspension (Mag Hydrox/Aluminum Hyd/Simeth) 355 Ml Oral.susp 355 Ml PO PRN BID PRN 08/07/17 Reported Ferrous Sulfate 325 Mg Tablet. 325 Mg PO DAILY 08/07/17 Reported Vitamin B-12 (Cyanocobalamin (Vitamin B-12)) 1,000 Mcg Tablet 1,000 Mcg PO DAILY 08/07/17 Reported Dulcolax (Bisacodyl) 5 Mg Tablet. 1 Tab PO PRN PRN 08/07/17 Reported Buspirone Hcl 5 Mg Tablet 5 Mg PO QID 08/07/17 Reported Divalproex Sodium 500 Mg Tablet. 500 Mg PO BID 08/07/17 Reported Indapamide 2.5 Mg Tablet 2.5 Mg PO QODAY 08/07/17 Reported Niaspan (Niacin) 500 Mg Tab.er.24h 500 Mg PO HS 08/07/17 Reported Dandruff 1% Shampoo (Selenium Sulfide/Aloe Vera) 325 Ml Shampoo 325 Ml TP PRN 08/07/17 Reported Potassium Chloride 20 Meq Tablet.er 40 Meq PO DAILY 08/07/17 Reported Nystatin 15 Gm Oint...g. 15 Gm TP PRN Q8HRS PRN 08/07/17 Reported Olanzapine 2.5 Mg Tablet 2.5 Mg PO PRN Q2HR PRN 08/07/17 Reported Bupropion Hcl Sr (Bupropion Hcl) 100 Mg Tablet.er 300 Mg PO DAILY 08/07/17 Reported Ascorbic Acid 500 Mg Tablet 500 Mg PO DAILY 08/07/17 Reported Tamsulosin Hcl 0.4 Mg Cap.er.24h 1 Cap PO DAILY 08/07/17 Reported Tylenol (Acetaminophen) 325 Mg Tablet 650 Mg PO PRN Q6HRS PRN 08/07/17 Reported Magnesium Oxide 400 Mg Tablet 400 Mg PO TID 08/07/17 Reported Nystatin 1 Each Powder.ea. 1 Each PO BID 08/07/17 Reported Colace (Docusate Sodium) 100 Mg Capsule 1 Cap PO BID 08/07/17 Reported Impression . IMPRESSION: 1. Acute on chronic hypoxemic hypercapnic respiratory failure. 2. Positive D-dimer, nonspecific. 3. CT angiogram revealing no evidence of central pulmonary emboli. 4. Chronic obstructive pulmonary disease. 5. Obstructive sleep apnea. 6. Abnormal CT chest revealing evidence of peritoneum and omentum metastatic disease. Possible pancreatic CA 7. Protein malnutrition present upon admission. 8. Morbid obesity, body mass index of 45.8. Plan . AGREE WITH PLANS FOR PALLIATIVE CARE OK DO Bernard/C PLACIDO URIBE MD Aug 10, 2017 16:21
--- NOTE | 2017-09-06 13:33 | DS ---
DATE OF DISCHARGE: 08/10/2017 DISCHARGE DIAGNOSES: 1. Acute encephalopathy due to hypercapnic respiratory failure. 2. 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 3. Morbid obesity. 4. Elevated troponin secondary to myocardial strain. 5. Hypoventilation syndrome and obesity, on CPAP. REASON FOR HOSPITAL STAY: This pleasant patient was admitted to the hospital with respiratory failure, abdominal pain and hypoxia and seen in consultation by Pulmonary as well as Oncology and felt to have extensive metastatic disease. He does have a history of chronic encephalopathy, likely due to developmental disability. After extensive workup, he is found to have no evidence of a pulmonary embolus and it was recommended that he undergo screening for palliative care. All consultants agreed this was appropriate. Discharge was arranged with hospice and he will be discharged directly to the hospice care today in [place] at his nursing facility. For discharge meds, please see medication reconciliation. PROGNOSIS: Grave. CONSULTATIONS: With Pulmonary and Oncology. COMPLICATIONS: None. DISCHARGE CONDITION: Poor. The patient is not a reliable historian, cannot give an adequate review of systems today, but does want to go home. He is tolerating a soft diet well. DARWIN KWAN MD DR: SAUNDRA/jose JOB#: [id number] / [id number]
== END 2017-08-10 12:45 | disposition hospice, home (50) | DRG 189 ==
LOC: 6 SOUTH 20:30
PROVIDERS: ADMIT Internal Medicine Hematology & Oncology; ATTEND Internal Medicine Hematology & Oncology
PROC: 5A09357 Assistance with Respiratory Ventilation, Less than 24 Consecutive Hours, Continuous Positive Airway Pressure (ICD-10-PCS; principal; 2017-08-08)
DX: J96.22 Acute and chronic respiratory failure with hypercapnia (principal); G93.41 Metabolic encephalopathy; C78.6 Secondary malignant neoplasm of retroperitoneum and peritoneum; E88.81 Metabolic syndrome and other insulin resistance; I11.0 Hypertensive heart disease with heart failure; C25.9 Malignant neoplasm of pancreas, unspecified; E46 Unspecified protein-calorie malnutrition; E11.65 Type 2 diabetes mellitus with hyperglycemia; E66.2 Morbid (severe) obesity with alveolar hypoventilation; I50.32 Chronic diastolic (congestive) heart failure; Z68.42 Body mass index [BMI] 45.0-49.9, adult; N39.0 Urinary tract infection, site not specified; J96.21 Acute and chronic respiratory failure with hypoxia; D64.9 Anemia, unspecified; Z51.5 Encounter for palliative care; E55.9 Vitamin D deficiency, unspecified; M19.90 Unspecified osteoarthritis, unspecified site; E78.5 Hyperlipidemia, unspecified; F25.9 Schizoaffective disorder, unspecified; I45.10 Unspecified right bundle-branch block; F41.9 Anxiety disorder, unspecified; G89.29 Other chronic pain; J44.9 Chronic obstructive pulmonary disease, unspecified; F31.9 Bipolar disorder, unspecified; F79 Unspecified intellectual disabilities; G31.84 Mild cognitive impairment of uncertain or unknown etiology; G40.909 Epilepsy, unspecified, not intractable, without status epilepticus; I89.0 Lymphedema, not elsewhere classified; K59.00 Constipation, unspecified; Z99.3 Dependence on wheelchair; Z88.2 Allergy status to sulfonamides; Z88.8 Allergy status to other drugs, medicaments and biological substances
CPT/HCPCS: 36415; 36600; 71010; 71275; 74177; 80053; 80061; 82378; 82607; 82728; 82746; 82805; 83036; 83540; 83550; 83735; 83880; 84443; 84484; 85007; 85025; 85045; 85379; 87641; 93005; 94660; C8929; J0696; J2920; Q9956; Q9966; Q9967